=== PATIENT | male | born 1955 | race Caucasian/White ===

== ENCOUNTER 2024-05-26 19:59 | Outpatient (REF) | payer SELFPAY ==
[2024-05-26 18:51] LABS: Abs Immature Grans 0.15 10^3/uL (0.0-0.06); Absolute Eosinophil Count 0.08 10^3/uL (0.0-0.7); Absolute Lymphocyte Count 1.72 10^3/uL (1.2-3.4); Absolute Monocyte Count 1.17 10^3/uL (0.1-0.8); Absolute Neutrophil Count 5.29 10^3/uL (1.2-6.7); Basophils % 1.2 %; Eosinophils % 0.9 %; HCT 31.7 % (40.0-50.0); HGB 11.3 g/dL (13.5-17.5); Immature Grans % 1.8 %; Lymphocytes % 20.2 %; MCH 33.8 pg (27.0-33.0); MCHC 35.6 % (32.0-36.0); MCV 95 fL (80-95); MPV 9.9 fL (8.0-11.0); Monocytes % 13.7 %; Neutrophils % 62.2 %; Platelet Count 385 10^3/uL (130-400); RBC 3.34 10^6/uL (4.36-5.78); RDW 13.4 % (11.8-14.1); RDW-SD 45.5 fL; WBC 8.51 10^3/uL (4.4-10.8)
[2024-05-26 19:07] LABS: Iron 24 ug/dL (65-175); Total Iron Binding Capacity 235 ug/dL (250-450); Transferrin Sat 10 % (20-55)
[2024-05-26 19:09] LABS: Hemoglobin A1C 5.4 % (<5.7)
[2024-05-26 19:34] LABS: ALT 48 U/L (16-63); AST 27 U/L (15-37); Albumin 2.9 g/dL (3.4-5.0); Alkaline Phosphatase 65 U/L (46-116); Anion Gap 12.6 mmol/L (3-11); BUN 12 mg/dL (7-18); Bilirubin, Total 0.54 mg/dL (0.2-1.0); CO2 25.4 mmol/L (21.0-32.0); CREATININE 1.2 mg/dL (0.70-1.30); Calcium 9.2 mg/dL (8.5-10.1); Chloride 102 mmol/L (98-107); Estimated GFR 65.87 (mL/min/1.73m2); Ferritin 817 ng/mL (26-388); Folate 16.5 ng/mL (8.6-20.0); Glucose 98 mg/dL (74-106); Potassium 3.5 mmol/L (3.5-5.1); Sodium 140 mmol/L (136-145); TSH (W/Ref FT4) 3.32 uIU/mL (0.36-3.74); Total Protein 6.3 g/dL (6.4-8.2); Vitamin B12 607 pg/mL (193-986)
[2024-05-26 19:40] LABS: Magnesium 0.3 mg/dL (1.8-2.4)
[2024-05-30 21:25] LABS: Thiamine (Vitamin B1), WB 119 nmol/L (70-180)
== END 2024-05-26 20:00 | disposition home or self-care (01) ==
LOC: LBN 19:59
PROVIDERS: Visit Provider Nurse Practitioner Gerontology
DX: I11.0 Hypertensive heart disease with heart failure (principal); I11.9 Hypertensive heart disease without heart failure; R73.09 Other abnormal glucose; G89.4 Chronic pain syndrome; D52.9 Folate deficiency anemia, unspecified; D51.9 Vitamin B12 deficiency anemia, unspecified; R53.82 Chronic fatigue, unspecified; E83.42 Hypomagnesemia; E51.9 Thiamine deficiency, unspecified; I50.9 Heart failure, unspecified
CPT/HCPCS: 80053; 82607; 82728; 82746; 83036; 83540; 83550; 83735; 84425; 84443; 85025

== ENCOUNTER 2024-05-27 10:32 | Observation (INO) | payer MEDICARE, MEDICAID, SELFPAY ==
[2024-05-27] VITALS (51 sets, daily range): BP systolic 89–147; BP diastolic 56–96; PULSE 71–101; RESP 14–26; TEMP 36.6–36.9; O2SAT 93–98
--- NOTE | 2024-05-27 10:30 | RT.EKG_ITS ---
APPROVED REPORT Exam: Resting ECG Reason for Exam: Electrolyte abnormalities Patient Location: E HR:97 bpm ECG Measurements Heart Rate 97 AXIS UT 186 P 6 QRSd 82 QRS -26 QT 363 T 19 QTc 457 Conclusion Sinus rhythm, rate 97 No interval abnormalities PVCs No STEMI No priors available for comparison
--- NOTE | 2024-05-27 11:00 | W.ED.GENAD ---
Discharge Plan Disposition Patient Disposition: Admit to [facility] Condition: Stable Discharge Details Chief Complaint: GenMedical Clinical Impression: Hypomagnesemia, Hypokalemia Primary Care Provider: Unknown,Unknown ED Provider: Savita Kang Home Meds and New Rx's Prescriptions: No Action albuterol 90 mcg/actuation aerosol 108 mcg inhalation .q 6 hr prn doxycycline hyclate 100 mg capsule 100 mg PO BID omeprazole 20 mg capsule,delayed release(DR/EC) 20 mg PO DAILY loratadine [Allergy Relief (loratadine)] 10 mg tablet 10 mg PO DAILY lisinopril 5 mg tablet 5 mg PO DAILY Eliquis 5 mg tablet 5 mg PO ONCE HPI General Mode of arrival: EMS. Date/Time Provider Initiated Documentation: 05/27/24 10:36. Limitations to Documentation: no limitations. Information obtained by: patient, EMS and old records reviewed. HPI Narrative: HPI: This is a 68-year-old male patient with a history of alcohol use, residing at the [facility] for the last week, who is presenting for evaluation of low magnesium. Per EMS report the patient had laboratory studies done at the [facility] that showed a magnesium of 0.3, prompting them to seek care. The patient himself is alert and oriented to self only which is his reported baseline. He has been taking all of his medications as prescribed per his report, and is currently asymptomatic. He denies chest pain, shortness of breath, abdominal pain, has not had vomiting. Exam: Gen: Awake and alert, in no apparent distress HEENT: Non-icteric sclera Neck: Supple Lungs: No apparent respiratory distress, normal respiratory effort. CV: Appears well perfused, strong distal pulses Abdomen: Non-distended, soft, nontender MSK: Moves 4 extremities without apparent limitation in ROM. No rigidity, tetany, or spasm Skin: Visualized skin without rashes, cyanosis. Neuro: Normal Gait, no obvious focal deficits or facial asymmetry. Speaks in full, clear sentences. Psych: Appropriate for situation. MDM: This is a 68-year-old male patient presenting for evaluation of hypomagnesemia on outpatient labs. Differential includes but is not limited to electrolyte derangement, kidney injury, laboratory error, cardiac arrhythmia, malnutrition, and considered urinary tract infection. The patient is otherwise without any localizing symptoms. We will obtain an EKG and laboratory studies to include CBC, CMP, magnesium, UA. ED Course: EKG reviewed by myself, showing a sinus rhythm but evidence of ischemia, interval abnormality, though the patient does have occasional PVCs. Laboratory studies show no leukocytosis, stable anemia at 11.3 and no thrombocytopenia. Metabolic panel significant for a mildly low potassium at 3.2 which was repleted orally, and a very low magnesium of 0.2, for which I provided 4 g of magnesium intravenously. Creatinine is very slightly above at baseline at 1.4, no evidence of liver dysfunction. UA is without infectious findings or hematuria. I discussed this patient's case with the hospitalist given his exceptionally low magnesium which will likely require ongoing repletion. They have graciously accepted this patient for admission to their team, patient remained boarding in the emergency department due to lack of bed availability. Remained hemodynamically appropriate while under my care. Savita Kang MD Related Data Home Medications ?Medication ?Instructions ?Recorded ?Confirmed albuterol 90 mcg/actuation aerosol 108 mcg inhalation .q 6 hr prn 05/27/24 05/27/24 inhaler apixaban 5 mg tablet (Eliquis) 5 mg PO ONCE 05/27/24 05/27/24 doxycycline hyclate 100 mg capsule 100 mg PO BID 05/27/24 05/27/24 lisinopril 5 mg tablet 5 mg PO DAILY 05/27/24 05/27/24 loratadine 10 mg tablet (Allergy 10 mg PO DAILY 05/27/24 05/27/24 Relief (loratadine)) omeprazole 20 mg capsule,delayed 20 mg PO DAILY 05/27/24 05/27/24 release Allergies Allergy/AdvReac Type Severity Reaction Status Date / Time cephalexin Allergy Mild Unknown Verified 05/27/24 10:51 grass pollen Allergy Mild Unknown Unverified 05/27/24 10:51 Penicillins Allergy Mild Unknown Verified 05/27/24 10:51 venlafaxine (From Effexor) Allergy Mild Unknown Verified 05/27/24 10:51 ragweed pollen Allergy Unknown Verified 05/27/24 10:51 chocolate AdvReac Unknown Unknown Verified 05/27/24 10:51 General Stated Complaint: GenMedical DONAVON: 4 Course Vital Signs Vital signs: Vital Signs Temperature 36.9 C 05/27/24 10:37 Pulse 96 H 05/27/24 10:37 Respiratory Rate 16 05/27/24 10:37 Blood Pressure 103/72 05/27/24 10:37 Pulse Oximetry 93 05/27/24 10:37 Temperature 36.9 C 05/27/24 10:37 Pulse 96 H 05/27/24 10:37 Respiratory Rate 16 05/27/24 10:37 Blood Pressure 103/72 05/27/24 10:37 Pulse Oximetry 93 05/27/24 10:37 Pain Level 0 05/27/24 10:37 Medical Decision Making Quality:SDOH Health Related Social Needs: No Data to Display PFSH All Active Problems (Updated 05/27/24 @ 13:02 by Savita Kang MD) Hypokalemia (Acute) Hypomagnesemia (Acute) Social History Smoking/Tobacco Use Status: Former Tobacco Use Smoking risk assessment performed?: Yes Alcohol Intake: former Drug use: Never Substance use type: does not use Housing: assisted living facility
[2024-05-27 11:37] LABS: Abs Immature Grans 0.15 10^3/uL (0.0-0.06); Absolute Basophil Count 0.14 10^3/uL (0.0-0.2); Absolute Eosinophil Count 0.08 10^3/uL (0.0-0.7); Absolute Monocyte Count 1.09 10^3/uL (0.1-0.8); Absolute Neutrophil Count 6.15 10^3/uL (1.2-6.7); Basophils % 1.5 %; Eosinophils % 0.9 %; HCT 32.6 % (40.0-50.0); HGB 11.3 g/dL (13.5-17.5); Immature Grans % 1.6 %; Lymphocytes % 18.3 %; MCH 31.8 pg (27.0-33.0); MCHC 34.7 % (32.0-36.0); MCV 92 fL (80-95); MPV 8.9 fL (8.0-11.0); Monocytes % 11.7 %; Platelet Count 359 10^3/uL (130-400); RBC 3.55 10^6/uL (4.36-5.78); RDW 13.4 % (11.8-14.1); RDW-SD 45.1 fL; WBC 9.31 10^3/uL (4.4-10.8)
[2024-05-27 11:56] LABS: ALT 47 U/L (16-63); AST 26 U/L (15-37); Albumin 2.9 g/dL (3.4-5.0); Alkaline Phosphatase 59 U/L (46-116); BUN 15 mg/dL (7-18); Bilirubin, Total 0.63 mg/dL (0.2-1.0); CREATININE 1.4 mg/dL (0.70-1.30); Calcium 8.8 mg/dL (8.5-10.1); Chloride 98 mmol/L (98-107); Estimated GFR 54.75 (mL/min/1.73m2); Glucose 105 mg/dL (74-106); Potassium 3.2 mmol/L (3.5-5.1); Sodium 137 mmol/L (136-145)
[2024-05-27 11:58] LABS: Magnesium 0.2 mg/dL (1.8-2.4)
[2024-05-27] MEDS: MAGNESIUM SULFATE 4 GM/100 ML BAG IV_INF (12:06)
[2024-05-27] MEDS: Potassium Chloride 20 MEQ TABCR 40 MEQ PO (12:07)
[2024-05-27 12:28] LABS: Bilirubin Small (Negative); Blood Negative (Negative); Clarity Clear (Clear); Glucose 100 mg/dL (Negative); Ketones Trace mg/dL (Negative); Leukocyte Esterase Negative (Negative); Nitrite Negative (Negative); Specific Gravity 1.015 (1.005-1.025)
[2024-05-27 12:42] LABS: Bacteria Negative HPF (Negative); Crystals Negative HPF (Negative); Epithelial Cells Rare HPF (Negative); Mucus Moderate (Negative); RBC Negative HPF (0-2); WBC Negative HPF (0-5)
[2024-05-27 12:43] LABS: C & S Indicated? No; Casts 3-5 Hyaline LPF (Negative)
[2024-05-27] MEDS: Lactated Ringers 1,000 ML 1000 ML IV (14:13)
--- NOTE | 2024-05-27 15:31 | W.PC.ACHO ---
Registration Status: Primary Language: Preferred Language: ED Information & Data Chief Complaint GenMedical 05/27/24 11:01 Triage Note axo to self, hx etoh, labs 05/27/24 10:37 done yesterday, mag 0.3 Most Recent Vital Signs Temperature 36.9 C 05/27/24 10:37 Pulse 79 05/27/24 14:46 Pulse 79 05/27/24 14:50 Respiratory Rate 15 05/27/24 14:50 Respiratory Effort Normal 05/27/24 11:47 Respiratory Depth Normal 05/27/24 11:47 Respiratory Pattern Normal 05/27/24 11:47 Blood Pressure 129/82 05/27/24 14:46 Blood Pressure Mean 95 05/27/24 14:46 Pulse Oximetry 93 05/27/24 10:37 Pain Level 0 05/27/24 10:37 Allergies cephalexin Allergy (Mild, Verified 05/27/24 10:51) Unknown grass pollen Allergy (Mild, Unverified 05/27/24 10:51) Unknown Penicillins Allergy (Mild, Verified 05/27/24 10:51) Unknown venlafaxine (From Effexor) Allergy (Mild, Verified 05/27/24 10:51) Unknown ragweed pollen Allergy (Verified 05/27/24 10:51) Unknown chocolate Adverse Reaction (Unknown, Verified 05/27/24 10:51) Unknown IV IV Catheter Type [Right Upper Saline Lock arm Medial Port] IV Catheter Gauge [Right Upper 18 arm Medial Port] Diet Orders Category Date Time Status Diabetes Consistent CHO [DIET] Nutrition 05/27/24 Dinner Active Diagnostics 05/27/24 05/27/24 05/27/24 Range/Units 20:00 16:00 12:21 WBC (4.4-10.8) 10^3/uL RBC (4.36-5.78) 10^6/uL Hgb (13.5-17.5) g/dL Hct (40.0-50.0) % MCV (80-95) fL MCH (27.0-33.0) pg MCHC (32.0-36.0) % RDW (11.8-14.1) % Plt Count (130-400) 10^3/uL MPV (8.0-11.0) fL Immature Gran % % Neutrophils % % Lymphocytes % % Monocytes % % Eosinophils % % Basophils % % Nucleated RBC % (0.0-0.3) % Absolute Neutrophils (1.2-6.7) 10^3/uL Absolute Lymphocytes (1.2-3.4) 10^3/uL Absolute Monocytes (0.1-0.8) 10^3/uL Absolute Eosinophils (0.0-0.7) 10^3/uL Absolute Basophils (0.0-0.2) 10^3/uL Sodium (136-145) mmol/L Potassium (3.5-5.1) mmol/L Chloride (98-107) mmol/L Carbon Dioxide (21.0-32.0) mmol/L Anion Gap (3-11) mmol/L BUN (7-18) mg/dL Creatinine (0.70-1.30) mg/dL Est GFR (CKD-EPI 2020) (mL/min/1.73m2) Glucose (74-106) mg/dL Calcium (8.5-10.1) mg/dL Magnesium Pending Pending (1.8-2.4) mg/dL Total Bilirubin (0.2-1.0) mg/dL AST (15-37) U/L ALT (16-63) U/L Alkaline Phosphatase (46-116) U/L Total Protein (6.4-8.2) g/dL Albumin (3.4-5.0) g/dL Urine Color Yellow (Yellow) Urine Clarity Clear (Clear) Urine pH 6.0 (5-8) Ur Specific [place] 1.015 (1.005-1.025) Urine Protein 30 H (Neg-Trace) mg/dL Urine Ketones Trace H (Negative) mg/dL Urine Blood Negative (Negative) Urine Nitrite Negative (Negative) Urine Bilirubin Small H (Negative) Urine Urobilinogen 1.0 H (Up to 0.2) mg/dL Ur Leukocyte Esterase Negative (Negative) Urine RBC Negative (0-2) HPF Urine WBC Negative (0-5) HPF Ur Epithelial Cells Rare (Negative) HPF Urine Crystals Negative (Negative) HPF Urine Bacteria Negative (Negative) HPF Urine Casts 3-5 Hyaline (Negative) LPF Urine Mucus Moderate (Negative) Ur Culture Indicated? No Urine Glucose 100 H (Negative) mg/dL 05/27/24 Range/Units 11:31 WBC 9.31 (4.4-10.8) 10^3/uL RBC 3.55 L (4.36-5.78) 10^6/uL Hgb 11.3 L (13.5-17.5) g/dL Hct 32.6 L (40.0-50.0) % MCV 92 (80-95) fL MCH 31.8 (27.0-33.0) pg MCHC 34.7 (32.0-36.0) % RDW 13.4 (11.8-14.1) % Plt Count 359 (130-400) 10^3/uL MPV 8.9 (8.0-11.0) fL Immature Gran % 1.6 % Neutrophils % 66.0 % Lymphocytes % 18.3 % Monocytes % 11.7 % Eosinophils % 0.9 % Basophils % 1.5 % Nucleated RBC % 0.0 (0.0-0.3) % Absolute Neutrophils 6.15 (1.2-6.7) 10^3/uL Absolute Lymphocytes 1.70 (1.2-3.4) 10^3/uL Absolute Monocytes 1.09 H (0.1-0.8) 10^3/uL Absolute Eosinophils 0.08 (0.0-0.7) 10^3/uL Absolute Basophils 0.14 (0.0-0.2) 10^3/uL Sodium 137 (136-145) mmol/L Potassium 3.2 L (3.5-5.1) mmol/L Chloride 98 (98-107) mmol/L Carbon Dioxide 27.0 (21.0-32.0) mmol/L Anion Gap 12.0 H (3-11) mmol/L BUN 15 (7-18) mg/dL Creatinine 1.4 H (0.70-1.30) mg/dL Est GFR (CKD-EPI 2020) 54.75 (mL/min/1.73m2) Glucose 105 (74-106) mg/dL Calcium 8.8 (8.5-10.1) mg/dL Magnesium 0.2 L* (1.8-2.4) mg/dL Total Bilirubin 0.63 (0.2-1.0) mg/dL AST 26 (15-37) U/L ALT 47 (16-63) U/L Alkaline Phosphatase 59 (46-116) U/L Total Protein 7.0 (6.4-8.2) g/dL Albumin 2.9 L (3.4-5.0) g/dL Urine Color (Yellow) Urine Clarity (Clear) Urine pH (5-8) Ur Specific [place] (1.005-1.025) Urine Protein (Neg-Trace) mg/dL Urine Ketones (Negative) mg/dL Urine Blood (Negative) Urine Nitrite (Negative) Urine Bilirubin (Negative) Urine Urobilinogen (Up to 0.2) mg/dL Ur Leukocyte Esterase (Negative) Urine RBC (0-2) HPF Urine WBC (0-5) HPF Ur Epithelial Cells (Negative) HPF Urine Crystals (Negative) HPF Urine Bacteria (Negative) HPF Urine Casts (Negative) LPF Urine Mucus (Negative) Ur Culture Indicated? Urine Glucose (Negative) mg/dL Intake and Output - 24 Hour Total 05/27/24 10:23 thru 05/27/24 13:27 Intake Total 110 Balance 110 Weight 71 kg Intake: IV 110 Falls Risk Assessment History of Falls No History 05/27/24 11:47 Contributing Factors No Factors 05/27/24 11:47 Ambulatory Aids Independent 05/27/24 11:47 Tubes/Lines None 05/27/24 11:47 Gait Evaluation No gait disturbance 05/27/24 11:47 Cognition No cognitive impairment 05/27/24 11:47 Fall Total Score 0 05/27/24 11:47 Level of Risk Standard/Low Risk 05/27/24 11:47 v v v v v v v v v Sending and/or Receiving Nurses: Please use comment section below to note any information pertinent to the patient hand-off not included above. Information / Comments: Report received from: yadi at 1525 given to haritha norwood
[2024-05-27 15:48] LABS: Magnesium 1.7 mg/dL (1.8-2.4)
--- NOTE | 2024-05-27 17:52 | W.PM.HP.N ---
Date of service: 05/27/24 Time of Service: 17:52 Assessment and Plan Assessment and plan (1) Hypokalemia: Status: Acute Assessment and plan: Potassium 3.2 Repleted - trend (2) Hypomagnesemia: Status: Acute Assessment and plan: On adm labs to the [facility] it was low, he was sent to ED - repeat mag 0.2 - 4 gm mag IV given in ED 1.7 @ 1600h Recheck in am The magnesium concentration should be measured 6 to 12 hours after each dose of IV magnesium. Repeat doses are given based upon the follow-up measurement. Of note, plasma magnesium levels do not correlate well with total body stores, as the majority of magnesium is intracellular; plasma concentrations may be transiently elevated for a few hours after administration of an IV dose. (3) Alcohol abuse: Status: Chronic Assessment and plan: EDWARD ferreira Was recently admitted to [facility] ICU - unsure the circumstances, this was after a fall. Med records requested. History of Present Illness Narrative: This is a 68-year-old male patient with a history of alcohol use who recently experienced a fall. He was evaluated and admitted to [facility], although the reason for his admission remains unclear at this time. Medical records have been requested to provide further clarification. Following his discharge, he was admitted to the [facility], where laboratory studies conducted upon admission revealed a critically low magnesium level. According to the report from emergency medical services, repeat laboratory studies at the [facility] confirmed a magnesium level of 0.3 milligrams per deciliter, which prompted his transfer to the emergency department for further evaluation. The patient consumes two pounder beers daily, according to his girlfriend of 17 years. He also uses chewing tobacco. His past medical history is largely unknown, but his girlfriend mentioned that he was previously discharged from his primary care provider, Dr. Saavedra. As a result, the patient has been unable to obtain a prescription for apixaban, which he was taking for a history of blood clots. The patient is awake and alert but oriented only to himself, which is reported to be his baseline. He denied any symptoms such as chest pain, difficulty breathing, abdominal pain, or vomiting. He is currently asymptomatic. In the emergency department, an EKG was reviewed and showed a normal sinus rhythm, although there was evidence of ischemia and interval abnormalities. The electrocardiogram also revealed occasional premature ventricular contractions. Laboratory studies did not show an elevated white blood cell count. The patient has stable anemia with a hemoglobin level of 11.3 and no decrease in platelet count. His metabolic panel revealed a mildly low potassium level of 3.2, which was treated with oral supplementation, and a critically low magnesium level of 0.2, for which the patient received four grams of magnesium intravenously. His kidney function is slightly above baseline with a creatinine level of 1.4. Ammonia level is pending. There is no evidence of liver dysfunction. A urinalysis did not show any signs of infection or blood in the urine. Further evaluation is warranted to assess the underlying causes of his hypomagnesemia, as well as to determine an appropriate plan for managing his anticoagulation therapy and other medical needs. The patient is placed on observation status for electrolyte repletion, further testing and treatment. Patient is in agreement with plan of care. The [facility] was notified of his observation status. Patient is a full code. Review of Systems All systems reviewed & are unremarkable except as noted in HPI and below PFSH All Active Problems (Updated 05/27/24 @ 13:36 by NATALIIA ALBERTO) Alcohol abuse (Chronic) Hypokalemia (Acute) Hypomagnesemia (Acute) Social History Smoking/Tobacco Use Status: Former Tobacco Use Smoking risk assessment performed?: Yes Alcohol Intake: former Drug use: Never Substance use type: does not use Housing: assisted living facility Meds Allergies and Home Medications Allergies Allergy/AdvReac Type Severity Reaction Status Date / Time cephalexin Allergy Mild Unknown Verified 05/27/24 10:51 grass pollen Allergy Mild Unknown Unverified 05/27/24 10:51 Penicillins Allergy Mild Unknown Verified 05/27/24 10:51 venlafaxine (From Effexor) Allergy Mild Unknown Verified 05/27/24 10:51 ragweed pollen Allergy Unknown Verified 05/27/24 10:51 chocolate AdvReac Unknown Unknown Verified 05/27/24 10:51 Home Medications ?Medication ?Instructions ?Recorded ?Confirmed ?Type albuterol 90 mcg/actuation aerosol 108 mcg inhalation .q 6 hr prn 05/27/24 05/27/24 History inhaler apixaban 5 mg tablet (Eliquis) 5 mg PO ONCE 05/27/24 05/27/24 History doxycycline hyclate 100 mg capsule 100 mg PO BID 05/27/24 05/27/24 History lisinopril 5 mg tablet 5 mg PO DAILY 05/27/24 05/27/24 History loratadine 10 mg tablet (Allergy 10 mg PO DAILY 05/27/24 05/27/24 History Relief (loratadine)) omeprazole 20 mg capsule,delayed 20 mg PO DAILY 05/27/24 05/27/24 History release Exam Narrative Exam Narrative: Gen: Awake and alert, in no apparent distress HEENT: Non-icteric sclera Neck: Supple Lungs: No apparent respiratory distress, normal respiratory effort. CV: Appears well perfused, strong distal pulses Abdomen: Non-distended, soft, nontender MSK: Moves 4 extremities without apparent limitation in ROM. No rigidity, tetany, or spasm Skin: Visualized skin without rashes, cyanosis. Neuro: Normal Gait, no obvious focal deficits or facial asymmetry. Speaks in full, clear sentences. Psych: Appropriate for situation. Results Labs 05/27/24 11:31 05/27/24 11:31 Labs: Laboratory Results - last 24 hr 05/27/24 05/27/24 05/27/24 11:31 12:21 15:35 WBC 9.31 RBC 3.55 L Hgb 11.3 L Hct 32.6 L MCV 92 MCH 31.8 MCHC 34.7 RDW 13.4 Plt Count 359 MPV 8.9 Immature Gran % 1.6 Neutrophils % 66.0 Lymphocytes % 18.3 Monocytes % 11.7 Eosinophils % 0.9 Basophils % 1.5 Nucleated RBC % 0.0 Absolute Neutrophils 6.15 Absolute Lymphocytes 1.70 Absolute Monocytes 1.09 H Absolute Eosinophils 0.08 Absolute Basophils 0.14 Sodium 137 Potassium 3.2 L Chloride 98 Carbon Dioxide 27.0 Anion Gap 12.0 H BUN 15 Creatinine 1.4 H Est GFR (CKD-EPI 2020) 54.75 Glucose 105 Calcium 8.8 Magnesium 0.2 L* 1.7 L Total Bilirubin 0.63 AST 26 ALT 47 Alkaline Phosphatase 59 Total Protein 7.0 Albumin 2.9 L Urine Color Yellow Urine Clarity Clear Urine pH 6.0 Ur Specific [place] 1.015 Urine Protein 30 H Urine Ketones Trace H Urine Blood Negative Urine Nitrite Negative Urine Bilirubin Small H Urine Urobilinogen 1.0 H Ur Leukocyte Esterase Negative Urine RBC Negative Urine WBC Negative Ur Epithelial Cells Rare Urine Crystals Negative Urine Bacteria Negative Urine Casts 3-5 Hyaline Urine Mucus Moderate Ur Culture Indicated? No Urine Glucose 100 H 05/27/24 20:00 WBC RBC Hgb Hct MCV MCH MCHC RDW Plt Count MPV Immature Gran % Neutrophils % Lymphocytes % Monocytes % Eosinophils % Basophils % Nucleated RBC % Absolute Neutrophils Absolute Lymphocytes Absolute Monocytes Absolute Eosinophils Absolute Basophils Sodium Potassium Chloride Carbon Dioxide Anion Gap BUN Creatinine Est GFR (CKD-EPI 2020) Glucose Calcium Magnesium Cancelled Total Bilirubin AST ALT Alkaline Phosphatase Total Protein Albumin Urine Color Urine Clarity Urine pH Ur Specific [place] Urine Protein Urine Ketones Urine Blood Urine Nitrite Urine Bilirubin Urine Urobilinogen Ur Leukocyte Esterase Urine RBC Urine WBC Ur Epithelial Cells Urine Crystals Urine Bacteria Urine Casts Urine Mucus Ur Culture Indicated? Urine Glucose Last Vital Signs Temp 36.6 C 05/27/24 16:03 Pulse 85 05/27/24 16:03 Resp 20 05/27/24 16:03 BP 116/82 05/27/24 16:03 Pulse Ox 98 05/27/24 16:03 Time Spent Time spent with Patient: 40-54 minutes Time was spent: preparing to see the patient(eg.review tests), obtaining and/or reviewing separately otained hiistory, ordering medications,tests, procedures, referring, communicating with other health childcare center administrator, indepentently interpreting results and counseling the patient
[2024-05-27] MEDS: Enoxaparin 40 MG/0.4 ML SYR SC (20:10)
[2024-05-27] MEDS: Normal Saline Flush 10 ML SYR IVP (21:25)
[2024-05-28 00:25] VITALS: BP 125/83; PULSE 87; RESP 14; TEMP 35.8; O2SAT 96
[2024-05-28 03:15] VITALS: BP 131/87; PULSE 75; RESP 18; TEMP 36; O2SAT 94
[2024-05-28 08:09] LABS: Abs Immature Grans 0.07 10^3/uL (0.0-0.06); Absolute Basophil Count 0.12 10^3/uL (0.0-0.2); Absolute Eosinophil Count 0.14 10^3/uL (0.0-0.7); Absolute Lymphocyte Count 1.03 10^3/uL (1.2-3.4); Absolute Monocyte Count 0.61 10^3/uL (0.1-0.8); Basophils % 1.5 %; Eosinophils % 1.7 %; HCT 30.9 % (40.0-50.0); HGB 11.1 g/dL (13.5-17.5); Immature Grans % 0.9 %; Lymphocytes % 12.8 %; MCH 32.7 pg (27.0-33.0); MCHC 35.9 % (32.0-36.0); MCV 91 fL (80-95); MPV 9.2 fL (8.0-11.0); Monocytes % 7.6 %; Neutrophils % 75.5 %; Platelet Count 412 10^3/uL (130-400); RBC 3.39 10^6/uL (4.36-5.78); RDW 13.7 % (11.8-14.1); RDW-SD 45.9 fL; WBC 8.07 10^3/uL (4.4-10.8)
[2024-05-28 08:24] LABS: INR 1.2 (0.9-1.1); Prothrombin Time 11.5 sec (9.1-11.1)
[2024-05-28 08:30] LABS: Ammonia < 10 umol/L (11-32)
[2024-05-28 08:41] LABS: Anion Gap 11.9 mmol/L (3-11); BUN 13 mg/dL (7-18); CO2 24.1 mmol/L (21.0-32.0); CREATININE 1.1 mg/dL (0.70-1.30); Calcium 8.8 mg/dL (8.5-10.1); Chloride 102 mmol/L (98-107); Estimated GFR 73.12 (mL/min/1.73m2); Glucose 115 mg/dL (74-106); Magnesium 1.1 mg/dL (1.8-2.4); Potassium 3.2 mmol/L (3.5-5.1); Sodium 138 mmol/L (136-145)
[2024-05-28] MEDS: Lisinopril 5 MG TAB PO (08:44)
[2024-05-28] MEDS: Loratidine 10 MG TAB PO (08:44)
[2024-05-28] MEDS: Omeprazole 20 MG CAPCR PO (08:44)
[2024-05-28] MEDS: Normal Saline Flush 10 ML SYR IVP (08:45)
[2024-05-28 08:53] VITALS: BP 102/61; PULSE 105; RESP 16; TEMP 36.1; O2SAT 97
--- NOTE | 2024-05-28 09:56 | PDOC.CMIN ---
Date of service: 05/28/24 Time of Service: 09:56 Care Management Initial Assmt Initial Assessment Reason for Hospitalization: hypomagnesium Functional Status/Living Situation Patient Presentation: Chet was sitting up in a chair when CM met with him. He was pleasant but confused. He did not answer direct questions appropriately and did not seem sure about the details of his life. Chet lives in [place] with his significant other Mindi. He shared that they have been together for 19 years. Chet informed CM that he once bought her an engagement ring set and she pawned it to play golf. He laughed and stated that she has never been and is afraid to do so now. He did not seem to mind. Chet will be discharged back to [facility] later today. He was hospitalized for a low magnesium and it has been repleted. Town of Residence: [place] (originally from [place] but staying at the [facility] currently) Resides with: Other (SNF) Significant Other/Family: Local Employment Status: Retired Instrumental Activities of Daily Living (ADLs): Requires support Medications Medication Management: No Issues/Barriers identified Physical Functioning/Mobility Assistive Device: walker Advance Directives Advance Directives: Do you have an Advance Directive: Y 05/27/24 13:05 AD On File at [facility]: N 05/27/24 13:05 Date Asked 05/27/24 05/27/24 13:05 AD Date Reviewed COLST On File at [facility] COLST Date Scanned Code Status Resuscitation Status Full Code Portal Pt does not currently have a portal and education provided: No Insurance Coverage/Financial Issues Insurance: [employer] Medicare Replacement Care Team Visit Care Team Role Provider Type Unknown Unknown Primary Care Provider STAFF PHYSICIAN Savita Kang MD Emergency Provider [facility] STAFF PHYSICIAN Simone Nicholson MD Admit Provider [facility] STAFF PHYSICIAN Attending Provider Discharge Potential Discharge Needs: Other (return to SNF) Anticipated Barriers to Discharge: None Identified Patient/Family Education Needs: Review discharge instructions, discuss Ask Me Three Transportation: RCT RCT Transportation: Private vechicle Plan: Anticipate Chet will be discharged back to the [facility] when medically cleared. He will follow up with the facility providers and plan of care and transport via EMS coordinated by CM. CM will follow. Social Determinants of Health Screening Social Determinants of Health last assessed: 05/28/24 Will the Patient Participate in the Screening?: Unable to obtain Do you worry about having a steady place to live?: no Problems where you live: no known problems In the past 12 months, have you had to go without electric, gas, oil or water in your home?: no Have you or anyone in your house had to go without enough food to eat?: no Has lack of transportation kept you from medical appointments or from doing things needed for daily living?: no Has anyone in your life made you feel unsafe or unsupported?: no How hard is it for you to pay for the very basics like food, housing, medical care, and heating? Would you say it is:: Not hard at all Do you want help finding or keeping work or a job?: I do not need or want help If for any reason you need help with day-to-day activities such as bathing, preparing meals, shopping, managing finances, etc., do you get the help you need?: I don?t need any help How often do you feel lonely or isolated from those around you?: Never Do you speak a language other than Marshallese at home?: No Does the patient want assistance with any of the above?: No PFSH All Active Problems (Updated 05/27/24 @ 13:36 by NATALIIA ALBERTO) Alcohol abuse (Chronic) Hypokalemia (Acute) Hypomagnesemia (Acute) Social History Smoking/Tobacco Use Status: Former Tobacco Use Smoking risk assessment performed?: Yes Alcohol Intake: former Drug use: Never Substance use type: does not use Housing: assisted living facility
[2024-05-28] MEDS: Potassium Chloride 20 MEQ TABCR 40 MEQ PO (10:25)
[2024-05-28] MEDS: MAGNESIUM SULFATE 4 GM/100 ML BAG IV_INF (10:25)
[2024-05-28 11:57] VITALS: BP 97/70; PULSE 95; RESP 18; TEMP 37.2; O2SAT 95
--- NOTE | 2024-05-28 13:48 | W.PM.DS.N ---
Date of service: 05/28/24 Time of Service: 13:48 DS: Diagnosis Discharge Diagnosis (1) Hypokalemia: Status: Acute (2) Hypomagnesemia: Status: Acute (3) Alcohol abuse: Status: Chronic Discharge Plan Disposition Patient Disposition: Longterm Facility(SNF) Condition: Stable Condition: Improving Discharge Details Reason For Visit: hypomagnesemia Admit Date/Time: 05/27/24 13:05 Admit Provider: Simone Nicholson Attending Provider: Simone Nicholson Primary Care Provider: Devyn Benoit [facility] Course Hospital Course: The patient is a 68-year-old male with a history of alcohol use disorder, and has experienced withdrawal seizures, who was admitted to [facility] after a fall. He was admitted for acute renal failure, hyperkalemia, and alcohol withdrawal, with a possible seizure due to alcohol withdrawal. [facility] recommended rehabilitation for the patient due to weakness, and he was transferred to the [facility]. Upon admission to the [facility], laboratory studies revealed critically low magnesium levels. His magnesium level was confirmed to be 0.2, which prompted his transfer to the emergency department for further evaluation and treatment. The patient reported consuming two ?pounder? beers daily, according to his girlfriend of 17 years, and using chewing tobacco. His medical history was not well-documented, but his girlfriend noted that he had been previously discharged from care by his primary care provider, Dr. Saavedra, and had been unable to obtain a prescription for apixaban, which he had been taking for a history of blood clots. Upon investigation, it was confirmed that the patient has a primary care provider, Devyn Benoit APRN. His current medication list was received, and it was updated in the system this morning and correctly reconciled. In the emergency department, the patient was awake, alert, and oriented only to himself, which was consistent with his baseline. He denied chest pain, difficulty breathing, abdominal pain, or vomiting, and was otherwise asymptomatic. An electrocardiogram (EKG) revealed normal sinus rhythm but showed evidence of ischemia, interval abnormalities, and occasional premature ventricular contractions. Laboratory results indicated a potassium level of 3.2, which was corrected with oral supplementation, and a critically low magnesium level of 0.2. The patient received 4 grams of intravenous magnesium sulfate. Kidney function was slightly elevated with a creatinine level of 1.4, and ammonia levels were negative. There was no evidence of liver dysfunction, and a urinalysis showed no signs of infection or hematuria. The patient's hypomagnesemia was addressed with IV magnesium, and his potassium level was corrected with oral supplementation. Further testing was warranted to investigate the underlying cause of his electrolyte imbalances and to establish an appropriate management plan for his anticoagulation therapy. The patient was placed on observation status for monitoring and further treatment. The patient agreed with the planned course of care and is a full code. Labs this morning: Potassium: 3.2 (Patient received 40 meq potassium orally) Magnesium: 1.1 (Patient received 4 gm magnesium IV) Recommendations: Start magnesium 64 mg orally twice a day (or equivalent) Start potassium 20 meq orally daily Check electrolytes in 3 days The patient is stable and was discharged back to the [facility] via EMS. Home Meds and New Rx's Prescriptions: New magnesium chloride 64 mg magnesium tablet 64 mg PO BID Qty: 60 0RF potassium chloride 20 mEq tablet extended release 20 meq PO DAILY Qty: 30 0RF polyethylene glycol 3350 17 gram Powder In Packet 17 g PO DAILY PRN PRN (Reason: Constipation) Qty: 14 0RF Continued omeprazole 20 mg capsule,delayed release(DR/EC) 20 mg PO DAILY loratadine [Allergy Relief (loratadine)] 10 mg tablet 5 mg PO DAILY lisinopril 5 mg tablet 5 mg PO DAILY Eliquis 5 mg tablet 5 mg PO BID Combivent Respimat 20-100 mcg/actuation mist 1 puff inhalation QID PRN Rx Instructions: space evenly during waking hours polyethylene glycol 3350 [Powderlax] 17 gram/dose powder 17 g PO DAILY PRN thiamine HCl (vitamin B1) 100 mg tablet 100 mg PO DAILY dextromethorphan-guaifenesin [Tussin DM] 10-100 mg/5 mL liquid 5 ml PO Q4H PRN (Reason: cough) Discontinued doxycycline hyclate 100 mg capsule 100 mg PO BID Discharge Instructions Additional Instructions: Patient was discharged from [facility] on 05/23 with Rx for doxycycline for bronchitis; today makes 5 days; course completed. Start magnesium 64 mg twice a day. Start potassium 20 meq daily. Recommend BMP in 3 days. Med list received this morning from patient's PCP Sampson Benoit APRN's office. It has been reconcilled. Referrals: Black,Devyn, [employer]PA[employer]ER [Primary Care Provider] - (1-2 weeks post hospitalization appointment to be made on discharge from the [facility]) Activity:: Activity as Tolerated Equipment/Supplies:: No Equipment Needed Diet:: As Tolerated Discharge Orders Discharge Orders: Discharge Order (Routine); Ordered 05/28/24 Ordered By: Elisabeth Adame Other Ambulatory Orders: Basic Metabolic Panel (Routine) Timeframe: 3 Days Facility: [facility] - Location: Laboratory Outpatient - [facility] Ordered By: Elisabeth Adame DS: Summary Time Spent with Patient providing and/or coordinating discharge services: Greater than 30 minutes Status at Discharge Functional status at discharge: uses cane/walker Overall status at discharge: patient is back to baseline Mental Status: mental status grossly normal (baseline for patient) Speech and Movement: speech and movement normal Mood: congruent mood Affect: normal affect Quality:SDOH Health Related Social Needs: No Data to Display Exam Narrative Exam Narrative: Gen: Awake and alert, in no apparent distress HEENT: Non-icteric sclera Neck: Supple Lungs: No apparent respiratory distress, normal respiratory effort. CV: Appears well perfused, strong distal pulses Abdomen: Non-distended, soft, nontender MSK: Moves 4 extremities without apparent limitation in ROM. No rigidity, tetany, or spasm Skin: Visualized skin without rashes, cyanosis. Neuro: Normal Gait, no obvious focal deficits or facial asymmetry. Speaks in full, clear sentences. Psych: Appropriate for situation. Psych Mental Status: mental status grossly normal (baseline for patient) Speech and Movement: speech and movement normal Mood: congruent mood Affect: normal affect DS: Data Vitals/I&O Vitals and I&O: Vital Signs Temperature 37.2 C 05/28/24 11:57 Temperature Source Temporal Artery Scan 05/28/24 11:57 Pulse 95 H 05/28/24 11:57 Pulse Rhythm Irregular 05/27/24 16:03 Pulse 78 05/27/24 15:31 Respiratory Rate 18 05/28/24 11:57 Respiratory Effort Normal 05/27/24 16:03 Respiratory Depth Normal 05/27/24 16:03 Respiratory Pattern Normal 05/27/24 16:03 Blood Pressure 97/70 L 05/28/24 11:57 Blood Pressure Mean 77 05/27/24 15:31 Pulse Oximetry 95 05/28/24 11:57 Oxygen Delivery Method Room Air 05/28/24 11:57 Oxygen Flow Rate 0 05/28/24 11:57 Pain Level 0 05/28/24 03:15 Comment Notifying RN 05/28/24 11:57 Intake & Output 05/27/24 05/28/24 05/28/24 23:59 11:59 23:59 Intake Total 1110 / 1120 32.083 / 32.083 Balance 1110 / 1120 32.083 / 32.083 Weight 82.663 kg Intake: IV 1110 / 1120 32.083 / 32.083 Other: Urine Color Yellow Yellow Urine Appearance Clear Urine Odor None Stool Size Smear Stool Characteristics Brown Data Completed and Pending Labs on day of discharge: Labs from last 24 hours 05/28/24 05/27/24 05/27/24 07:55 20:00 15:35 WBC 8.07 RBC 3.39 L Hgb 11.1 L Hct 30.9 L MCV 91 MCH 32.7 MCHC 35.9 RDW 13.7 Plt Count 412 H MPV 9.2 Immature Gran % 0.9 Neutrophils % 75.5 Lymphocytes % 12.8 Monocytes % 7.6 Eosinophils % 1.7 Basophils % 1.5 Nucleated RBC % 0.0 Absolute Neutrophils 6.10 Absolute Lymphocytes 1.03 L Absolute Monocytes 0.61 Absolute Eosinophils 0.14 Absolute Basophils 0.12 PT 11.5 H INR 1.2 H Sodium 138 Potassium 3.2 L Chloride 102 Carbon Dioxide 24.1 Anion Gap 11.9 H BUN 13 Creatinine 1.1 Est GFR (CKD-EPI 2020) 73.12 Glucose 115 H Calcium 8.8 Magnesium 1.1 L Cancelled 1.7 L Ammonia < 10 L PFSH All Active Problems (Updated 05/27/24 @ 13:36 by NATALIIA ALBERTO) Alcohol abuse (Chronic) Hypokalemia (Acute) Hypomagnesemia (Acute) Social History Smoking/Tobacco Use Status: Former Tobacco Use Smoking risk assessment performed?: Yes Alcohol Intake: former Drug use: Never Substance use type: does not use Housing: assisted living facility Time Spent with Patient Time Spent with Patient: 70-84 minutes4 Time was spent: preparing to see the patient(eg.review tests), obtaining and/or reviewing separately otained hiistory, ordering medications,tests, procedures, referring, communicating with other health home care and home health aides teacher, indepentently interpreting results, counseling the patient and care coordination
--- NOTE | 2024-05-28 14:06 | W.PC.ACHO ---
Registration Status: Primary Language: Preferred Language: ED Information & Data Chief Complaint GenMedical 05/27/24 11:01 Triage Note axo to self, hx etoh, labs 05/27/24 10:37 done yesterday, mag 0.3 Most Recent Vital Signs Temperature 37.2 C 05/28/24 11:57 Temperature Source Temporal Artery Scan 05/28/24 11:57 Pulse 95 H 05/28/24 11:57 Pulse Rhythm Irregular 05/27/24 16:03 Pulse 78 05/27/24 15:31 Respiratory Rate 18 05/28/24 11:57 Respiratory Effort Normal 05/27/24 16:03 Respiratory Depth Normal 05/27/24 16:03 Respiratory Pattern Normal 05/27/24 16:03 Blood Pressure 97/70 L 05/28/24 11:57 Blood Pressure Mean 77 05/27/24 15:31 Pulse Oximetry 95 05/28/24 11:57 Oxygen Delivery Method Room Air 05/28/24 11:57 Oxygen Flow Rate 0 05/28/24 11:57 Pain Level 0 05/28/24 03:15 Comment Notifying RN 05/28/24 11:57 Allergies cephalexin Allergy (Mild, Verified 05/27/24 10:51) Unknown grass pollen Allergy (Mild, Unverified 05/27/24 10:51) Unknown Penicillins Allergy (Mild, Verified 05/27/24 10:51) Unknown venlafaxine (From Effexor) Allergy (Mild, Verified 05/27/24 10:51) Unknown ragweed pollen Allergy (Verified 05/27/24 10:51) Unknown chocolate Adverse Reaction (Unknown, Verified 05/27/24 10:51) Unknown Active Medications Generic Name Dose Route Start Last Admin Trade Name Freq PRN Reason Stop Dose Admin Enoxaparin Sodium 40 mg 05/27/24 20:00 05/27/24 20:10 Enoxaparin 40 Mg/0.4 Ml Syr SC 40 mg Q24H YOBANY Administration Lisinopril 5 mg 05/28/24 08:30 05/28/24 08:44 Lisinopril 5 Mg Tab PO 5 mg DAILY YOBANY Administration Loratadine 10 mg 05/28/24 08:30 05/28/24 08:44 Loratidine 10 Mg Tab PO 10 mg DAILY YOBANY Administration Omeprazole 20 mg 05/28/24 07:30 05/28/24 08:44 Omeprazole 20 Mg Capcr PO 20 mg DAILY@0730 YOBANY Administration Sodium Chloride 0 ml 05/27/24 20:20 05/28/24 08:45 Normal Saline Flush 10 Ml Syr IVP 10 ml BID YOBANY Administration IV IV Catheter Type [Right Upper Saline Lock arm Medial Port] IV Catheter Gauge [Right Upper 18 arm Medial Port] Diet Orders Category Date Time Status DIET [Heart Healthy Eating] [DIET] Nutrition 05/28/24 Breakfast Active Diagnostics 05/28/24 05/27/24 05/27/24 Range/Units 07:55 20:00 15:35 WBC 8.07 (4.4-10.8) 10^3/uL RBC 3.39 L (4.36-5.78) 10^6/uL Hgb 11.1 L (13.5-17.5) g/dL Hct 30.9 L (40.0-50.0) % MCV 91 (80-95) fL MCH 32.7 (27.0-33.0) pg MCHC 35.9 (32.0-36.0) % RDW 13.7 (11.8-14.1) % Plt Count 412 H (130-400) 10^3/uL MPV 9.2 (8.0-11.0) fL Immature Gran % 0.9 % Neutrophils % 75.5 % Lymphocytes % 12.8 % Monocytes % 7.6 % Eosinophils % 1.7 % Basophils % 1.5 % Nucleated RBC % 0.0 (0.0-0.3) % Absolute Neutrophils 6.10 (1.2-6.7) 10^3/uL Absolute Lymphocytes 1.03 L (1.2-3.4) 10^3/uL Absolute Monocytes 0.61 (0.1-0.8) 10^3/uL Absolute Eosinophils 0.14 (0.0-0.7) 10^3/uL Absolute Basophils 0.12 (0.0-0.2) 10^3/uL PT 11.5 H (9.1-11.1) sec INR 1.2 H (0.9-1.1) Sodium 138 (136-145) mmol/L Potassium 3.2 L (3.5-5.1) mmol/L Chloride 102 (98-107) mmol/L Carbon Dioxide 24.1 (21.0-32.0) mmol/L Anion Gap 11.9 H (3-11) mmol/L BUN 13 (7-18) mg/dL Creatinine 1.1 (0.70-1.30) mg/dL Est GFR (CKD-EPI 2020) 73.12 (mL/min/1.73m2) Glucose 115 H (74-106) mg/dL Calcium 8.8 (8.5-10.1) mg/dL Magnesium 1.1 L Cancelled 1.7 L (1.8-2.4) mg/dL Ammonia < 10 L (11-32) umol/L Intake and Output - 24 Hour Total 05/27/24 10:23 thru 05/28/24 12:20 Intake Total 1152.083 Balance 1152.083 Weight 82.663 kg Intake: IV 1152.083 Other: Urine Color Yellow Urine Appearance Clear Urine Odor None Stool Size Smear Stool Characteristics Brown Falls Risk Assessment History of Falls Previous History 05/27/24 16:03 Contributing Factors Confusion,Impairments 05/27/24 16:03 Ambulatory Aids Uses ambulatory device 05/27/24 16:03 Tubes/Lines W/no contributing factors 05/27/24 16:03 Gait Evaluation W/no contributing factors 05/27/24 16:03 Cognition Cognitive impairment 05/27/24 16:03 Fall Total Score 71 05/27/24 16:03 Level of Risk High Risk 05/27/24 16:03 Problems Alcohol abuse (Chronic) Hypokalemia (Acute) Hypomagnesemia (Acute) v v v v v v v v v Sending and/or Receiving Nurses: Please use comment section below to note any information pertinent to the patient hand-off not included above. Information / Comments: Report given to tawana sanchez from Courtney OSEI at [id number]
--- NOTE | 2024-05-28 18:05 | CMDISCH_ITS ---
Date of service: 05/28/24 Time of Service: 18:05 LACE Index Scoring Tool Questions: Length of Stay (in days): 1 Was the patient admitted via the E.D.?: Yes Comorbidities: Liver or Renal Disease E.D. Visits: 1 Answers: Total Score: 10 Risk of Readmission: High Risk Care Management Discharge Plan Reason for Hospitalization: low magnesium Discharge Plan: Chet will be discharged back to [facility]. He will follow up with the facility providers and plan of care and transport via EMS coordinated by CM. Patient/Family Education Needs: expectations, limitations Services Needed at Discharge: Correction Facility SDOH Health Related Social Needs: No Data to Display
== END 2024-05-28 14:17 | disposition skilled nursing facility (03) ==
LOC: ER 13:31 → EDHOLD 13:39 → MS 15:40
PROVIDERS: Nurse Practitioner Family; Admitting Provider Hospitalist; Emergency Provider Emergency Medicine; PCP Nurse Practitioner Family; Visit Provider Hospitalist
DX: E83.42 Hypomagnesemia (principal); E87.6 Hypokalemia; F10.10 Alcohol abuse, uncomplicated; Z79.01 Long term (current) use of anticoagulants; Z79.899 Other long term (current) drug therapy; F17.220 Nicotine dependence, chewing tobacco, uncomplicated; I49.3 Ventricular premature depolarization
CPT/HCPCS: 00123; 36415; 80048; 80053; 93005; 96361; 96365; 96366; 96372; 99285; J1650; 81003; 81015; 82140; 83735; 85025; 85610; 93010; 99222; 99239; J3475

== ENCOUNTER 2024-06-02 15:59 | Outpatient (REF) | payer MEDICARE, SELFPAY ==
[2024-06-02 14:33] LABS: ALT 42 U/L (16-63); AST 26 U/L (15-37); Albumin 2.5 g/dL (3.4-5.0); Alkaline Phosphatase 67 U/L (46-116); Anion Gap 10.1 mmol/L (3-11); BUN 8 mg/dL (7-18); Bilirubin, Total 0.36 mg/dL (0.2-1.0); CO2 23.9 mmol/L (21.0-32.0); CREATININE 0.9 mg/dL (0.70-1.30); Calcium 9.2 mg/dL (8.5-10.1); Chloride 107 mmol/L (98-107); Estimated GFR 93.03 (mL/min/1.73m2); Glucose 99 mg/dL (74-106); Magnesium 0.8 mg/dL (1.8-2.4); Potassium 4.6 mmol/L (3.5-5.1); Sodium 141 mmol/L (136-145); Total Protein 6.1 g/dL (6.4-8.2)
[2024-06-02 22:35] LABS: Parathyroid Hormone,Intact 44.6 pg/mL (19.0-88.0)
== END 2024-06-02 16:00 | disposition home or self-care (01) ==
LOC: LBN 15:59
PROVIDERS: PCP Nurse Practitioner Family; Visit Provider Nurse Practitioner Gerontology
DX: E51.9 Thiamine deficiency, unspecified (principal); E87.6 Hypokalemia; E83.42 Hypomagnesemia
CPT/HCPCS: 80053; 83735; 83970

== ENCOUNTER 2024-06-02 16:31 | Observation (INO) | payer MEDICARE, MEDICAID, SELFPAY ==
[2024-06-02] VITALS (24 sets, daily range): BP systolic 114–150; BP diastolic 74–91; PULSE 87–111; RESP 13–22; TEMP 36.5–36.9; O2SAT 95–98
--- NOTE | 2024-06-02 16:45 | RT.EKG_ITS ---
APPROVED REPORT Exam: Resting ECG Reason for Exam: weakness Patient Location: E HR:94 bpm ECG Measurements Heart Rate 94 AXIS GA 169 P 17 QRSd 80 QRS -21 QT 347 T 31 QTc 434 Conclusion Sinus rhythm. 94 normal axis no stemi
[2024-06-02 17:02] LABS: Abs Immature Grans 0.04 10^3/uL (0.0-0.06); Absolute Basophil Count 0.08 10^3/uL (0.0-0.2); Absolute Eosinophil Count 0.15 10^3/uL (0.0-0.7); Absolute Lymphocyte Count 2.33 10^3/uL (1.2-3.4); Absolute Monocyte Count 0.62 10^3/uL (0.1-0.8); Basophils % 1.1 %; Eosinophils % 2.1 %; HCT 33.6 % (40.0-50.0); HGB 11.2 g/dL (13.5-17.5); Immature Grans % 0.6 %; Lymphocytes % 33.2 %; MCH 31.7 pg (27.0-33.0); MCHC 33.3 % (32.0-36.0); MCV 95 fL (80-95); Monocytes % 8.8 %; Neutrophils % 54.2 %; Platelet Count 505 10^3/uL (130-400); RBC 3.53 10^6/uL (4.36-5.78); RDW 13.5 % (11.8-14.1); RDW-SD 47.1 fL; WBC 7.02 10^3/uL (4.4-10.8)
[2024-06-02 17:15] LABS: ALT 50 U/L (16-63); AST 27 U/L (15-37); Albumin 2.5 g/dL (3.4-5.0); Alkaline Phosphatase 64 U/L (46-116); Anion Gap 9.8 mmol/L (3-11); BUN 10 mg/dL (7-18); Bilirubin, Total 0.35 mg/dL (0.2-1.0); CO2 25.2 mmol/L (21.0-32.0); Calcium 9.2 mg/dL (8.5-10.1); Chloride 106 mmol/L (98-107); Estimated GFR 81.98 (mL/min/1.73m2); Glucose 92 mg/dL (74-106); PHOSPHORUS 4.2 mg/dL (2.6-4.7); Potassium 4.2 mmol/L (3.5-5.1); Sodium 141 mmol/L (136-145); Total Protein 6.7 g/dL (6.4-8.2)
[2024-06-02 17:22] LABS: ETHANOL BLOOD < 3.0 mg/dL (<10)
[2024-06-02 17:23] LABS: Magnesium 0.7 mg/dL (1.8-2.4)
[2024-06-02] MEDS: MAGNESIUM SULFATE 2 GM/50 ML BAG IVINF ×2 (17:36→18:29)
[2024-06-02] MEDS: Magnesium Oxide 400 MG TAB 800 MG PO (17:36)
--- NOTE | 2024-06-02 17:36 | W.PM.HP.N ---
Date of service: 06/02/24 Time of Service: 17:36 Assessment and Plan Assessment and plan (1) Hypomagnesemia: Status: Acute Assessment and plan: - Recently hospitalized at [facility] initially with magnesium of 0.2, which was repleted increased to 1.7 prior to discharge -Patient lives at the [facility] independently, and while he was having his labs checked it was noted to have decreased back down to 0.8 which prompted him to be brought back to the emergency department -At this time, unclear if patient has been taking his p.o. magnesium supplementation -Patient not noted to have any other electrolyte abnormalities at this time -This may be secondary to patient's ongoing alcohol use disorder -Has received 800 mg of magnesium oxide as well as a total of 4 mg of IV magnesium in the emergency department -Will continue p.o. regimen that was prescribed at previous hospitalization and will continue to monitor magnesium levels and adjust p.o. intake as needed (2) Alcohol abuse: Status: Chronic Assessment and plan: - No withdrawal signs at this time, will check CIWA -Continue oral vitamin replacement (3) Chronic anticoagulation: Status: Acute Assessment and plan: - Continue home Eliquis (4) Confusion: Status: Acute Assessment and plan: - Patient confused, only oriented to person -Likely contributing factor patient's questionable medication compliance -Unknown if patient's baseline if he has history of dementia, or other neurologic disease -Will be obtaining records from the [facility] and [facility] History of Present Illness History of Present Illness Chief Complaint: Low magnesium Narrative: 68-year-old male who lives at the [facility] was recently just hospitalized at [facility] from 05/27-05/28/2024 for hypomagnesemia presents back to the emergency department with complaints of hypomagnesemia. During previous hospitalization patient was noted as having a history of alcohol use disorder who consumes 2 pounder beers daily continues to chew tobacco, and was reportedly sent to the [facility] after hospitalization at [facility] for which details are largely unknown. However, when he was most recently at [facility] his magnesium level was noted as being 0.2 for which she received significant repletion both p.o. and IV and was increased back up to 1.7 prior to discharge. However, while his labs have been checked while at the [facility], his magnesium level earlier the morning of presentation was noted to be 0.8 which prompted him to be sent back to the emergency department. Patient has no complaints or concerns. In the emergency department patient was noted as having normal physical exam, normal vital signs. He was also unable to state whether or not he was taking his magnesium supplementation as was prescribed at previous discharge. While in the emergency department he was ordered 800 mg of p.o. magnesium oxide, and 2 separate doses of 2 g of IV magnesium. EKG was also ordered which did not show any acute abnormalities. At which time emergency room physician paged hospitalist for admission of the patient to observation status for ongoing hypomagnesemia. Review of Systems All systems reviewed & are unremarkable except as noted in HPI and below PFSH All Active Problems (Updated 06/02/24 @ 18:14 by Omega Corbett MD) Confusion (Acute) Chronic anticoagulation (Acute) Alcohol abuse (Chronic) Hypokalemia (Acute) Hypomagnesemia (Acute) Social History Smoking/Tobacco Use Status: Former Tobacco Use Smoking risk assessment performed?: Yes Alcohol Intake: former Drug use: Never Substance use type: does not use Housing: assisted living facility Meds Allergies and Home Medications Allergies Allergy/AdvReac Type Severity Reaction Status Date / Time cephalexin Allergy Mild Unknown Verified 05/27/24 10:51 grass pollen Allergy Mild Unknown Unverified 05/27/24 10:51 Penicillins Allergy Mild Unknown Verified 05/27/24 10:51 venlafaxine (From Effexor) Allergy Mild Unknown Verified 05/27/24 10:51 ragweed pollen Allergy Unknown Verified 05/27/24 10:51 chocolate AdvReac Unknown Unknown Verified 05/27/24 10:51 Home Medications ?Medication ?Instructions ?Recorded ?Confirmed ?Type apixaban 5 mg tablet (Eliquis) 5 mg PO BID 05/27/24 06/02/24 History lisinopril 5 mg tablet 5 mg PO DAILY 05/27/24 06/02/24 History loratadine 10 mg tablet (Allergy 10 mg PO DAILY 05/27/24 06/02/24 History Relief (loratadine)) dextromethorphan-guaifenesin 10 5 ml PO Q4H PRN cough 05/28/24 06/02/24 History mg-100 mg/5 mL oral liquid (Tussin DM) polyethylene glycol 3350 17 gram 17 g PO DAILY PRN PRN Constipation 05/28/24 06/02/24 Rx oral powder packet #14 ea potassium chloride 20 mEq 20 meq PO DAILY #30 tabs 05/28/24 06/02/24 Rx tablet,extended release thiamine HCl (vitamin B1) 100 mg 100 mg PO DAILY 05/28/24 06/02/24 History tablet albuterol sulfate 90 mcg/actuation 2 inh inhalation Q6H PRN 06/02/24 06/02/24 History aerosol inhaler lorazepam 0.5 mg tablet (Ativan) 2 mg PO Q4H PRN PRN 06/02/24 06/02/24 History magnesium gluconate 27 mg 27 mg PO TID 06/02/24 06/02/24 History magnesium (500 mg) tablet (Mag-G) mirtazapine 7.5 mg tablet 7.5 mg PO QHS 06/02/24 06/02/24 History omeprazole 20 mg capsule,delayed 20 mg PO DAILY 06/02/24 06/02/24 History release vitamin B12 0.5 mg-folic acid 1 mg 1 tab PO DAILY 06/02/24 06/02/24 History tablet (Foltrate) Exam Narrative Exam Narrative: Well-appearing older gentleman laying in bed in no acute distress, awake, alert, oriented to person only, heart regular rhythm, lungs clear to auscultation bilaterally, abdomen soft, nontender, nondistended Results Labs 06/02/24 16:45 06/02/24 16:45 Labs: Laboratory Results - last 24 hr 06/02/24 16:45 WBC 7.02 RBC 3.53 L Hgb 11.2 L Hct 33.6 L MCV 95 MCH 31.7 MCHC 33.3 RDW 13.5 Plt Count 505 H MPV 9.0 Immature Gran % 0.6 Neutrophils % 54.2 Lymphocytes % 33.2 Monocytes % 8.8 Eosinophils % 2.1 Basophils % 1.1 Nucleated RBC % 0.0 Absolute Neutrophils 3.80 Absolute Lymphocytes 2.33 Absolute Monocytes 0.62 Absolute Eosinophils 0.15 Absolute Basophils 0.08 Sodium 141 Potassium 4.2 Chloride 106 Carbon Dioxide 25.2 Anion Gap 9.8 BUN 10 Creatinine 1.0 Est GFR (CKD-EPI 2020) 81.98 Glucose 92 Calcium 9.2 Phosphorus 4.2 Magnesium 0.7 L Total Bilirubin 0.35 AST 27 ALT 50 Alkaline Phosphatase 64 Total Protein 6.7 Albumin 2.5 L Ethyl Alcohol < 3.0 Last Vital Signs Temp 98.4 F 06/02/24 17:14 Pulse 107 H 06/02/24 17:14 Resp 13 06/02/24 17:14 BP 131/74 06/02/24 17:14 Pulse Ox 96 06/02/24 17:14 Time Spent Time spent with Patient: >75 minutes Time was spent: preparing to see the patient(eg.review tests), obtaining and/or reviewing separately otained hiistory, ordering medications,tests, procedures, referring, communicating with other health childcare director, indepentently interpreting results, counseling the patient and care coordination
--- NOTE | 2024-06-02 19:20 | W.PC.ACHO ---
Registration Status: Primary Language: Preferred Language: ED Information & Data Chief Complaint GenMedical 06/02/24 16:53 Chief Complaint GenMedical 06/02/24 16:45 Triage Note Patient is a resident of the 06/02/24 16:45 [facility]. was brought to the ER by [facility]. Patient was seen in the ER days ago with hypo-magnesium. Retuned today after nursing from the [facility] stated patient mag is 0.4 today. Patient state he is uncertain why he was brought here today. Patient is alert x 1 Most Recent Vital Signs Temperature 36.7 C 06/02/24 19:01 Temperature Source Temporal Artery Scan 06/02/24 18:52 Pulse 87 06/02/24 19:01 Pulse 87 06/02/24 18:31 Respiratory Rate 17 06/02/24 19:01 Blood Pressure 149/87 H 06/02/24 19:01 Blood Pressure Mean 105 06/02/24 18:31 Blood Pressure Position Supine 06/02/24 17:14 Pulse Oximetry 98 06/02/24 19:01 Oxygen Delivery Method Room Air 06/02/24 17:14 Oxygen Flow Rate 0 06/02/24 16:45 Pain Level 0 06/02/24 19:01 Allergies cephalexin Allergy (Mild, Verified 06/02/24 18:18) Unknown grass pollen Allergy (Mild, Unverified 06/02/24 18:18) Unknown Penicillins Allergy (Mild, Verified 06/02/24 18:18) Unknown venlafaxine (From Effexor) Allergy (Mild, Verified 06/02/24 18:18) Unknown ragweed pollen Allergy (Verified 06/02/24 18:18) Unknown chocolate Adverse Reaction (Unknown, Verified 06/02/24 18:18) Unknown IV IV Catheter Type [Left Saline Lock Antecubital] IV Catheter Type [Left Forearm Saline Lock ] IV Catheter Gauge [Left 18 Forearm] Diet Orders Category Date Time Status Heart Healthy Eating [DIET] Nutrition 06/03/24 Breakfast Ordered Diagnostics 06/02/24 Range/Units 16:45 WBC 7.02 (4.4-10.8) 10^3/uL RBC 3.53 L (4.36-5.78) 10^6/uL Hgb 11.2 L (13.5-17.5) g/dL Hct 33.6 L (40.0-50.0) % MCV 95 (80-95) fL MCH 31.7 (27.0-33.0) pg MCHC 33.3 (32.0-36.0) % RDW 13.5 (11.8-14.1) % Plt Count 505 H (130-400) 10^3/uL MPV 9.0 (8.0-11.0) fL Immature Gran % 0.6 % Neutrophils % 54.2 % Lymphocytes % 33.2 % Monocytes % 8.8 % Eosinophils % 2.1 % Basophils % 1.1 % Nucleated RBC % 0.0 (0.0-0.3) % Absolute Neutrophils 3.80 (1.2-6.7) 10^3/uL Absolute Lymphocytes 2.33 (1.2-3.4) 10^3/uL Absolute Monocytes 0.62 (0.1-0.8) 10^3/uL Absolute Eosinophils 0.15 (0.0-0.7) 10^3/uL Absolute Basophils 0.08 (0.0-0.2) 10^3/uL Sodium 141 (136-145) mmol/L Potassium 4.2 (3.5-5.1) mmol/L Chloride 106 (98-107) mmol/L Carbon Dioxide 25.2 (21.0-32.0) mmol/L Anion Gap 9.8 (3-11) mmol/L BUN 10 (7-18) mg/dL Creatinine 1.0 (0.70-1.30) mg/dL Est GFR (CKD-EPI 2020) 81.98 (mL/min/1.73m2) Glucose 92 (74-106) mg/dL Calcium 9.2 (8.5-10.1) mg/dL Phosphorus 4.2 (2.6-4.7) mg/dL Magnesium 0.7 L (1.8-2.4) mg/dL Total Bilirubin 0.35 (0.2-1.0) mg/dL AST 27 (15-37) U/L ALT 50 (16-63) U/L Alkaline Phosphatase 64 (46-116) U/L Total Protein 6.7 (6.4-8.2) g/dL Albumin 2.5 L (3.4-5.0) g/dL Ethyl Alcohol < 3.0 (<10) mg/dL Intake and Output - 24 Hour Total 06/02/24 16:25 thru 06/02/24 18:05 Intake Total 50 Balance 50 Weight 81.647 kg Intake: IV 50 Falls Risk Assessment History of Falls Previous History 06/02/24 17:11 Contributing Factors Confusion,Unstable 06/02/24 17:11 Ambulatory Aids Uses ambulatory device 06/02/24 17:11 Cognition Cognitive impairment 06/02/24 17:11 Fall Total Score 51 06/02/24 17:11 Level of Risk High Risk 06/02/24 17:11 Problems Confusion (Acute) Chronic anticoagulation (Acute) Alcohol abuse (Chronic) Hypomagnesemia (Acute) v v v v v v v v v Sending and/or Receiving Nurses: Please use comment section below to note any information pertinent to the patient hand-off not included above. Information / Comments: Report received from: Sarah ed rn. Report called at 18:16, pt arrive at 18:46. mariano scott in the ed
--- NOTE | 2024-06-02 19:23 | ED.GENADUL_ITS ---
Discharge Plan Disposition Patient Disposition: Admit to [facility] Condition: Stable Discharge Details Clinical Impression: Hypomagnesemia Admit Date/Time: 06/02/24 17:36 Admit Provider: Omega Corbett Attending Provider: Omega Corbett Primary Care Provider: Devyn Benoit ED Provider: Shannon Hi Discharge Data Discharge Date/Time-TO BE ENTERED AT DEPARTURE: 06/02/24 18:36 HPI General Date/Time Provider Initiated Documentation: 06/02/24 16:52 . Limitations to Documentation: altered mental status . Information obtained by: RN/MD . HPI Narrative: 68-year-old gentleman with past medical history of prior alcohol abuse, chronic anticoagulation, electrolyte derangement presents via ambulance from the [facility]. Patient was discharged from this facility 4 days ago after having notable electrolyte derangement. Patient was started on oral replacement medication prior to discharge. The patient is unable to provide any additional history regarding the medication he is taking or his dietary habits that may be contributing to his ongoing derangement. Related Data Home Medications ?Medication ?Instructions ?Recorded ?Confirmed apixaban 5 mg tablet (Eliquis) 5 mg PO BID 05/27/24 06/02/24 lisinopril 5 mg tablet 5 mg PO DAILY 05/27/24 06/02/24 loratadine 10 mg tablet (Allergy 10 mg PO DAILY 05/27/24 06/02/24 Relief (loratadine)) dextromethorphan-guaifenesin 10 5 ml PO Q4H PRN cough 05/28/24 06/02/24 mg-100 mg/5 mL oral liquid (Tussin DM) polyethylene glycol 3350 17 gram 17 g PO DAILY PRN PRN Constipation 05/28/24 06/02/24 oral powder packet #14 ea potassium chloride 20 mEq 20 meq PO DAILY #30 tabs 05/28/24 06/02/24 tablet,extended release thiamine HCl (vitamin B1) 100 mg 100 mg PO DAILY 05/28/24 06/02/24 tablet albuterol sulfate 90 mcg/actuation 2 inh inhalation Q6H PRN 06/02/24 06/02/24 aerosol inhaler lorazepam 0.5 mg tablet (Ativan) 2 mg PO Q4H PRN PRN 06/02/24 06/02/24 magnesium gluconate 27 mg 27 mg PO TID 06/02/24 06/02/24 magnesium (500 mg) tablet (Mag-G) mirtazapine 7.5 mg tablet 7.5 mg PO QHS 06/02/24 06/02/24 omeprazole 20 mg capsule,delayed 20 mg PO DAILY 06/02/24 06/02/24 release vitamin B12 0.5 mg-folic acid 1 mg 1 tab PO DAILY 06/02/24 06/02/24 tablet (Foltrate) Previous Rx's ?Medication ?Instructions ?Recorded polyethylene glycol 3350 17 gram 17 g PO DAILY PRN PRN Constipation 05/28/24 oral powder packet #14 ea potassium chloride 20 mEq 20 meq PO DAILY #30 tabs 05/28/24 tablet,extended release Allergies Allergy/AdvReac Type Severity Reaction Status Date / Time cephalexin Allergy Mild Unknown Verified 06/02/24 18:18 grass pollen Allergy Mild Unknown Unverified 06/02/24 18:18 Penicillins Allergy Mild Unknown Verified 06/02/24 18:18 venlafaxine (From Effexor) Allergy Mild Unknown Verified 06/02/24 18:18 ragweed pollen Allergy Unknown Verified 06/02/24 18:18 chocolate AdvReac Unknown Unknown Verified 06/02/24 18:18 General Stated Complaint: GenMedical DONAVON: 3 Exam Narrative Exam Narrative: review of Systems: All systems reviewed & are unremarkable except as noted in HPI and below Well-developed, no acute distress NCAT RRR Unlabored respiratory effort Nondistended abdomen no focal neurologic deficits Pleasant, answers yes to every question, oriented to person, but not place Course Vital Signs Vital signs: Vital Signs Pulse 106 H 06/02/24 16:45 Respiratory Rate 13 06/02/24 16:45 Blood Pressure 140/83 06/02/24 16:45 Pulse Oximetry 96 06/02/24 16:45 Temperature 36.7 C 06/02/24 19:01 Temperature Source Temporal Artery Scan 06/02/24 18:52 Pulse 87 06/02/24 19:01 Pulse 87 06/02/24 18:31 Respiratory Rate 17 06/02/24 19:01 Blood Pressure 149/87 H 06/02/24 19:01 Blood Pressure Mean 105 06/02/24 18:31 Blood Pressure Position Supine 06/02/24 17:14 Pulse Oximetry 98 06/02/24 19:01 Oxygen Delivery Method Room Air 06/02/24 17:14 Oxygen Flow Rate 0 06/02/24 16:45 Pain Level 0 06/02/24 19:01 Lab/Test Results Lab/Test Results: Laboratory Tests Range/Units 06/02/24 16:45 WBC (4.4-10.8) 10^3/uL 7.02 RBC (4.36-5.78) 10^6/uL 3.53 L Hgb (13.5-17.5) g/dL 11.2 L Hct (40.0-50.0) % 33.6 L MCV (80-95) fL 95 MCH (27.0-33.0) pg 31.7 MCHC (32.0-36.0) % 33.3 RDW (11.8-14.1) % 13.5 Plt Count (130-400) 10^3/uL 505 H MPV (8.0-11.0) fL 9.0 Immature Gran % % 0.6 Neutrophils % % 54.2 Lymphocytes % % 33.2 Monocytes % % 8.8 Eosinophils % % 2.1 Basophils % % 1.1 Nucleated RBC % (0.0-0.3) % 0.0 Absolute Neutrophils (1.2-6.7) 10^3/uL 3.80 Absolute Lymphocytes (1.2-3.4) 10^3/uL 2.33 Absolute Monocytes (0.1-0.8) 10^3/uL 0.62 Absolute Eosinophils (0.0-0.7) 10^3/uL 0.15 Absolute Basophils (0.0-0.2) 10^3/uL 0.08 Sodium (136-145) mmol/L 141 Potassium (3.5-5.1) mmol/L 4.2 Chloride (98-107) mmol/L 106 Carbon Dioxide (21.0-32.0) mmol/L 25.2 Anion Gap (3-11) mmol/L 9.8 BUN (7-18) mg/dL 10 Creatinine (0.70-1.30) mg/dL 1.0 Est GFR (CKD-EPI 2020) (mL/min/1.73m2) 81.98 Glucose (74-106) mg/dL 92 Calcium (8.5-10.1) mg/dL 9.2 Phosphorus (2.6-4.7) mg/dL 4.2 Magnesium (1.8-2.4) mg/dL 0.7 L Total Bilirubin (0.2-1.0) mg/dL 0.35 AST (15-37) U/L 27 ALT (16-63) U/L 50 Alkaline Phosphatase (46-116) U/L 64 Total Protein (6.4-8.2) g/dL 6.7 Albumin (3.4-5.0) g/dL 2.5 L Ethyl Alcohol (<10) mg/dL < 3.0 Medical Decision Making Emergent evaluation of electrolyte derangement. Patient was sent from nursing facility for reevaluation of ongoing persistently low magnesium level. The pat ient was recently discharged from this facility for the same. Lab work was obtained. Anemia is stable. His magnesium level today is 0.6. He was given 4 G of magnesium in the emergency department as well as oral replacement. The patient will be admitted to the hospital for further electrolyte management Quality:SDOH Health Related Social Needs: No Data to Display [facility] All Active Problems (Updated 06/02/24 @ 18:14 by Omega Corbett MD) Confusion (Acute) Chronic anticoagulation (Acute) Alcohol abuse (Chronic) Hypokalemia (Acute) Hypomagnesemia (Acute) Social History Smoking/Tobacco Use Status: Former Tobacco Use Smoking risk assessment performed?: Yes Alcohol Intake: former Drug use: Never Substance use type: does not use Housing: assisted living facility
[2024-06-02] MEDS: Apixaban 5 MG TAB PO (19:42)
[2024-06-02] MEDS: Mirtazapine 15 MG TAB 7.5 MG PO (19:42)
[2024-06-02] MEDS: Magnesium Gluconate 500 MG TAB PO (19:42)
[2024-06-02] MEDS: Normal Saline Flush 10 ML SYR IVP ×2 (19:42→21:07)
[2024-06-03 02:36] VITALS: BP 131/81; PULSE 103; RESP 19; TEMP 36.6; O2SAT 97
[2024-06-03 07:14] LABS: HCT 30.3 % (40.0-50.0); HGB 10.1 g/dL (13.5-17.5); MCH 31.7 pg (27.0-33.0); MCHC 33.3 % (32.0-36.0); MCV 95 fL (80-95); MPV 9.1 fL (8.0-11.0); Platelet Count 447 10^3/uL (130-400); RBC 3.19 10^6/uL (4.36-5.78); RDW 13.4 % (11.8-14.1); RDW-SD 46.7 fL; WBC 6.47 10^3/uL (4.4-10.8)
[2024-06-03 07:41] LABS: Anion Gap 9.2 mmol/L (3-11); BUN 6 mg/dL (7-18); CO2 24.8 mmol/L (21.0-32.0); CREATININE 0.8 mg/dL (0.70-1.30); Calcium 9.2 mg/dL (8.5-10.1); Chloride 107 mmol/L (98-107); Glucose 94 mg/dL (74-106); Magnesium 1.8 mg/dL (1.8-2.4); Potassium 4.2 mmol/L (3.5-5.1); Sodium 141 mmol/L (136-145)
[2024-06-03 08:00] VITALS: BP 130/82; PULSE 100; RESP 16; TEMP 36.8; O2SAT 96
[2024-06-03] MEDS: Loratidine 10 MG TAB PO (08:44)
[2024-06-03] MEDS: Thiamine 100 MG TAB PO (08:44)
[2024-06-03] MEDS: Lisinopril 5 MG TAB PO (08:44)
[2024-06-03] MEDS: Magnesium Gluconate 500 MG TAB PO ×3 (08:44→19:55)
[2024-06-03] MEDS: Cyanocobalamin 500 MCG TAB PO (08:44)
[2024-06-03] MEDS: Apixaban 5 MG TAB PO ×2 (08:44→19:55)
[2024-06-03] MEDS: Folic Acid 1 MG TAB PO (08:44)
[2024-06-03] MEDS: Omeprazole 20 MG CAPCR PO (08:45)
[2024-06-03] MEDS: Potassium Chloride 20 MEQ TABCR PO (08:45)
[2024-06-03] MEDS: Normal Saline Flush 10 ML SYR IVP ×2 (08:45→19:55)
[2024-06-03] MEDS: guaiFENesin/D-METHORPHAN HB 5 ML CUP PO (08:45)
--- NOTE | 2024-06-03 09:43 | PDOC.CMIN ---
Date of service: 06/03/24 Time of Service: 09:44 Care Management Initial Assmt Initial Assessment Reason for Hospitalization: hypomagnesemia Functional Status/Living Situation Patient Presentation: Chet was sitting up in a chair when CM met with him. He was alert but confused. Chet was not sure where he was and informed CM that he lived in [facility] in [place], in [place] and 2 miles from here at different points in the conversation. Chet stated that he lives with Mindi in [place]. he stated he has 5 children and she has one. 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 Chet was admitted in observation status for a low magnesium. He is being monitored and his magnesium is being repleted. Town of Residence: [place] Resides with: Other (SNF) Significant Other/Family: Local Natural Supports: girlfriend Mindi Employment Status: Disabled Instrumental Activities of Daily Living (ADLs): Independent Medications Medication Management: No Issues/Barriers identified (has meds administered by staff) Physical Functioning/Mobility Assistive Device: walker Advance Directives Advance Directives: Do you have an Advance Directive: Y 05/27/24 13:05 AD [facility] at [facility]: N 05/27/24 13:05 Date Asked 06/02/24 06/02/24 13:56 AD Date Reviewed COLST On File at [facility] COLST Date Scanned Code Status Resuscitation Status Full Code Portal Pt does not currently have a portal and education provided: No Portal Education: Other (confused) Insurance Coverage/Financial Issues Insurance: [facility] Medicare replacement Care Team Visit Care Team Role Provider Type Devyn Benoit NP Primary Care Provider NURSE PRACTITIONER Shannon Hi MD Emergency Provider [facility] STAFF PHYSICIAN Omega Corbett MD Admit Provider [facility] STAFF PHYSICIAN Attending Provider Discharge Potential Discharge Needs: Other (SNF) Anticipated Barriers to Discharge: Medical Status Patient/Family Education Needs: Review discharge instructions, discuss Ask Me Three Transportation: RCT Plan: Chet will be discharged back to [facility] when medically cleared. He will follow up with facility providers and plan of care and transport via RCT coordinated by CM. CM will follow. Social Determinants of Health Screening Will the Patient Participate in the Screening?: Declined to provide PFSH All Active Problems (Updated 06/02/24 @ 18:14 by Omega Corbett MD) Confusion (Acute) Chronic anticoagulation (Acute) Alcohol abuse (Chronic) Hypokalemia (Acute) Hypomagnesemia (Acute) Social History Smoking/Tobacco Use Status: Former Tobacco Use Smoking risk assessment performed?: Yes Alcohol Intake: former Drug use: Never Substance use type: does not use Housing: long-term Readmission Within the Past 30 Days Yes or No: Yes Date of First Admission Date of 1st Admission: 05/27/24 Date of this Admission Date of Admission: 06/02/24 This admission was: Through ED If the patient came from Ext. Facility Call the Facility to discuss the patient's admission: has been getting his magnesium tid as ordered Assessment for Readmission Summary of readmission circumstances, based upon interviews: Chet was hospitalized last week for an electrolyte imbalance with a low magnesium (0.2) and slightly low potassium.Both were repleted and he was discharged with an order for magnesium tid which he has been receiving (confirmed with SNF).
[2024-06-03 11:39] VITALS: BP 117/84; PULSE 100; RESP 16; TEMP 36.8; O2SAT 98
--- NOTE | 2024-06-03 13:34 | PGE_ITS ---
Date of Service Date of service: 06/03/24 Time of Service: 13:34 Assessment and Plan Assessment and plan (1) Hypomagnesemia: Status: Acute Assessment and plan: - Recently hospitalized at [facility] initially with magnesium of 0.2, which was repleted increased to 1.7 prior to discharge -Patient lives at the [facility] for subacute rehab, and while he was having his labs checked it was noted to have decreased back down to 0.8 which prompted him to be brought back to the emergency department -[facility] was able to confirm that he has been taking his p.o. magnesium supplementation 3 times daily -Patient not noted to have any other electrolyte abnormalities at this time -This may be secondary to patient's ongoing alcohol use disorder -Has received 800 mg of magnesium oxide as well as a total of 4 mg of IV magnesium in the emergency department -Will continue p.o. regimen that was prescribed and monitor magnesium levels on this regimen and make adjustments as needed (2) Alcohol abuse: Status: Chronic Assessment and plan: - Patient is apparently been abstinent from alcohol at least since being at the [facility] over the last 2 weeks -CIWA scoring has been discontinued (3) Chronic anticoagulation: Status: Acute Assessment and plan: - Continue home Eliquis (4) Confusion: Status: Acute Assessment and plan: - Patient confused, only oriented to person -Was able to confirm with the [facility] that this is patient's baseline mental status -This is likely secondary to chronic alcohol use disorder, though would recommend outpatient follow-up with neurologist for formal diagnosis Subjective Subjective Interval history since last seen: Patient able to stated that he is doing well today but he continues to only be oriented to person. 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 Additionally, the [facility] confirmed that since he was admitted there about 2 weeks ago he has not had access to alcohol therefore he is not going through alcohol withdrawal, and confirms his confusion as his likely baseline mental status. Exam Narrative Exam Narrative: Well-appearing older gentleman laying in bed in no acute distress, awake, alert, oriented to person only, heart regular rhythm, lungs clear to auscultation bilaterally, abdomen soft, nontender, nondistended Objective Last Vital Signs Temp 98.2 F 06/03/24 11:39 Pulse 100 H 06/03/24 11:39 Resp 16 06/03/24 11:39 BP 117/84 06/03/24 11:39 Pulse Ox 98 06/03/24 11:39 Laboratory Results - last 24 hr 06/02/24 06/03/24 16:45 06:17 WBC 7.02 6.47 RBC 3.53 L 3.19 L Hgb 11.2 L 10.1 L Hct 33.6 L 30.3 L MCV 95 95 MCH 31.7 31.7 MCHC 33.3 33.3 RDW 13.5 13.4 Plt Count 505 H 447 H MPV 9.0 9.1 Immature Gran % 0.6 Neutrophils % 54.2 Lymphocytes % 33.2 Monocytes % 8.8 Eosinophils % 2.1 Basophils % 1.1 Nucleated RBC % 0.0 Absolute Neutrophils 3.80 Absolute Lymphocytes 2.33 Absolute Monocytes 0.62 Absolute Eosinophils 0.15 Absolute Basophils 0.08 Sodium 141 141 Potassium 4.2 4.2 Chloride 106 107 Carbon Dioxide 25.2 24.8 Anion Gap 9.8 9.2 BUN 10 6 L Creatinine 1.0 0.8 Est GFR (CKD-EPI 2020) 81.98 96.40 Glucose 92 94 Calcium 9.2 9.2 Phosphorus 4.2 Magnesium 0.7 L 1.8 Total Bilirubin 0.35 AST 27 ALT 50 Alkaline Phosphatase 64 Total Protein 6.7 Albumin 2.5 L Ethyl Alcohol < 3.0 Time Spent with Patient Time Spent with Patient: >50 minutes Time was spent: preparing to see the patient(eg.review tests), obtaining and/or reviewing separately otained hiistory, ordering medications,tests, procedures, referring, communicating with other health child care teacher, indepentently interpreting results, counseling the patient and care coordination
[2024-06-03 14:52] VITALS: BP 114/68; PULSE 78; RESP 16; TEMP 36.6; O2SAT 94
[2024-06-03 15:01] LABS: Magnesium 1.6 mg/dL (1.8-2.4)
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
[2024-06-03] MEDS: Mirtazapine 15 MG TAB 7.5 MG PO (19:55)
[2024-06-03 20:14] VITALS: BP 106/80; PULSE 111; RESP 17; TEMP 36.7; O2SAT 99
[2024-06-03 23:35] VITALS: BP 140/89; PULSE 103; RESP 19; TEMP 36.6; O2SAT 97
[2024-06-04] MEDS: LORazepam 0.5 MG TAB PO ×2 (01:35→07:44)
[2024-06-04 03:25] VITALS: BP 141/83; PULSE 101; RESP 19; TEMP 36.9; O2SAT 96
[2024-06-04 07:04] LABS: HCT 28.5 % (40.0-50.0); HGB 9.7 g/dL (13.5-17.5); MCH 31.7 pg (27.0-33.0); MCV 93 fL (80-95); MPV 8.8 fL (8.0-11.0); Platelet Count 478 10^3/uL (130-400); RBC 3.06 10^6/uL (4.36-5.78); RDW 13.6 % (11.8-14.1); RDW-SD 45.9 fL
[2024-06-04 07:15] LABS: Anion Gap 8.3 mmol/L (3-11); BUN 7 mg/dL (7-18); CO2 24.7 mmol/L (21.0-32.0); CREATININE 0.9 mg/dL (0.70-1.30); Calcium 9.7 mg/dL (8.5-10.1); Chloride 104 mmol/L (98-107); Estimated GFR 93.03 (mL/min/1.73m2); Glucose 99 mg/dL (74-106); Potassium 4.1 mmol/L (3.5-5.1); Sodium 137 mmol/L (136-145)
[2024-06-04 07:17] LABS: Magnesium 1.5 mg/dL (1.8-2.4)
[2024-06-04] MEDS: Magnesium Gluconate 500 MG TAB PO (07:44)
[2024-06-04] MEDS: Lisinopril 5 MG TAB PO (07:46)
[2024-06-04] MEDS: Apixaban 5 MG TAB PO ×2 (07:46→21:45)
[2024-06-04] MEDS: Potassium Chloride 20 MEQ TABCR PO (07:46)
[2024-06-04] MEDS: Cyanocobalamin 500 MCG TAB PO (07:46)
[2024-06-04] MEDS: Omeprazole 20 MG CAPCR PO (07:46)
[2024-06-04] MEDS: Thiamine 100 MG TAB PO (07:46)
[2024-06-04] MEDS: Loratidine 10 MG TAB PO (07:46)
[2024-06-04] MEDS: Normal Saline Flush 10 ML SYR IVP ×2 (07:47→21:46)
[2024-06-04 08:18] VITALS: BP 138/94; PULSE 95; RESP 14; TEMP 36.8; O2SAT 93
[2024-06-04] MEDS: Magnesium Gluconate 500 MG TAB 1000 MG PO ×3 (11:06→21:45)
[2024-06-04] MEDS: Folic Acid 1 MG TAB PO (11:06)
[2024-06-04 11:39] VITALS: BP 142/96; PULSE 101; RESP 15; TEMP 36.7; O2SAT 96
--- NOTE | 2024-06-04 12:18 | PDOC.CMPRO ---
Date of service: 06/04/24 Time of Service: 12:19 Care Management Progress Note Progress Note Text Progress Note Text: Chet was sleeping, no changes are made to his discharge plan therefor CM did not attempt to wake him. Chet will be discharged back to the [facility][1] when medically ready for discharge. PA was approved and pt may return on Sunday, per Yennifer. Discharge Potential Discharge Needs: Consult Anticipated Barriers to Discharge: Medical Status Patient/Family Education Needs: Review discharge instructions, discuss Ask Me Three Transportation: RCT Plan: Chet will be discharged back to [facility]] when medically cleared, likely tomorrow. Prior Auth is approved and he is able to return Sunday if ready. He will follow up with facility providers and plan of care and transport via RCT coordinated by CM. May need EMS depending on level of confusion. CM will follow. Social Determinants of Health Screening Will the Patient Participate in the Screening?: Declined to provide
--- NOTE | 2024-06-04 12:38 | PGE_ITS ---
Date of Service Date of service: 06/04/24 Time of Service: 12:38 Assessment and Plan Assessment and plan (1) Hypomagnesemia: Status: Acute Assessment and plan: - Recently hospitalized at [facility] initially with magnesium of 0.2, which was repleted increased to 1.7 prior to discharge -Patient lives at the [facility] for subacute rehab, and while he was having his labs checked it was noted to have decreased back down to 0.8 which prompted him to be brought back to the emergency department -[facility] was able to confirm that he has been taking his p.o. magnesium supplementation 3 times daily -Patient not noted to have any other electrolyte abnormalities at this time -This may be secondary to patient's ongoing alcohol use disorder -Has received 800 mg of magnesium oxide as well as a total of 4 mg of IV magnesium in the emergency department -Mg up to 1.8 on AM 2/4, but has dropped back down to 1.5 as of AM 2/5 -increased PO Mg to 1000mg TID, will check PM Mg level (2) Alcohol abuse: Status: Chronic Assessment and plan: - Patient is apparently been abstinent from alcohol at least since being at the [facility] over the last 2 weeks -CIWA scoring has been discontinued (3) Chronic anticoagulation: Status: Acute Assessment and plan: - Continue home Eliquis (4) Confusion: Status: Acute Assessment and plan: - Patient confused, only oriented to person -Was able to confirm with the [facility] that this is patient's baseline mental status -This is likely secondary to chronic alcohol use disorder, though would recommend outpatient follow-up with neurologist for formal diagnosis Subjective Subjective Interval history since last seen: Patient a little more agitated as compared to previous days, though appeared clam during my exam this morning. Exam Narrative Exam Narrative: Well-appearing older gentleman laying in bed in no acute distress, awake, alert, oriented to person only, heart regular rhythm, lungs clear to auscultation bilaterally, abdomen soft, nontender, nondistended Objective Last Vital Signs Temp 98.1 F 06/04/24 11:39 Pulse 101 H 06/04/24 11:39 Resp 15 06/04/24 11:39 BP 142/96 H 06/04/24 11:39 Pulse Ox 96 06/04/24 11:39 Laboratory Results - last 24 hr 06/03/24 06/04/24 13:55 06:20 WBC 7.30 RBC 3.06 L Hgb 9.7 L Hct 28.5 L MCV 93 MCH 31.7 MCHC 34.0 RDW 13.6 Plt Count 478 H MPV 8.8 Sodium 137 Potassium 4.1 Chloride 104 Carbon Dioxide 24.7 Anion Gap 8.3 BUN 7 Creatinine 0.9 Est GFR (CKD-EPI 2020) 93.03 Glucose 99 Calcium 9.7 Magnesium 1.6 L 1.5 L Time Spent with Patient Time Spent with Patient: >50 minutes Time was spent: preparing to see the patient(eg.review tests), obtaining and/or reviewing separately otained hiistory, ordering medications,tests, procedures, referring, communicating with other health pediatric acute care unit nurse, indepentently interpreting results, counseling the patient and care coordination
[2024-06-04 13:13] LABS: Magnesium 1.4 mg/dL (1.8-2.4)
[2024-06-04] MEDS: LORazepam 0.5 MG TAB 1 MG PO ×2 (13:48→21:45)
[2024-06-04] MEDS: LORazepam 1 MG TAB PO ×2 (14:26→22:40)
[2024-06-04 15:44] VITALS: BP 127/79; PULSE 109; RESP 15; TEMP 37.8; O2SAT 93
[2024-06-04] MEDS: OLANZapine 5 MG TAB 2.5 MG PO (17:21)
[2024-06-04 19:27] VITALS: BP 124/85; PULSE 98; RESP 17; TEMP 36.8; O2SAT 95
[2024-06-04] MEDS: Acetaminophen 325 MG TAB PO (21:45)
[2024-06-04] MEDS: Mirtazapine 15 MG TAB 7.5 MG PO (21:45)
[2024-06-04] MEDS: guaiFENesin/D-METHORPHAN HB 5 ML CUP PO (21:46)
[2024-06-04] MEDS: OLANZapine 2.5 MG TAB PO (22:41)
[2024-06-05 02:43] VITALS: BP 153/101; PULSE 78; RESP 20; TEMP 36.7; O2SAT 98
[2024-06-05 07:57] LABS: Anion Gap 10.9 mmol/L (3-11); BUN 4 mg/dL (7-18); CO2 25.1 mmol/L (21.0-32.0); Calcium 10.1 mg/dL (8.5-10.1); Chloride 108 mmol/L (98-107); Estimated GFR 81.98 (mL/min/1.73m2); Glucose 87 mg/dL (74-106); Magnesium 1.5 mg/dL (1.8-2.4); Sodium 144 mmol/L (136-145)
[2024-06-05] MEDS: Cyanocobalamin 500 MCG TAB PO (08:50)
[2024-06-05] MEDS: Potassium Chloride 20 MEQ TABCR PO (08:50)
[2024-06-05] MEDS: Folic Acid 1 MG TAB PO (08:50)
[2024-06-05] MEDS: OLANZapine 2.5 MG TAB PO (08:50)
[2024-06-05] MEDS: Lisinopril 5 MG TAB PO (08:50)
[2024-06-05] MEDS: Apixaban 5 MG TAB PO (08:50)
[2024-06-05] MEDS: Omeprazole 20 MG CAPCR PO (08:51)
[2024-06-05] MEDS: Thiamine 100 MG TAB PO (08:51)
[2024-06-05] MEDS: Loratidine 10 MG TAB PO (08:51)
[2024-06-05] MEDS: Magnesium Gluconate 500 MG TAB 1000 MG PO (08:51)
[2024-06-05 08:55] VITALS: BP 129/92; PULSE 92; RESP 16; TEMP 36.1; O2SAT 97
--- NOTE | 2024-06-05 09:25 | PDOC.CMDIS ---
Date of service: 06/05/24 LACE Index Scoring Tool Questions: Length of Stay (in days): 3 Was the patient admitted via the E.D.?: Yes Comorbidities: Dementia E.D. Visits: 2 Answers: Total Score: 11 Risk of Readmission: High Risk Care Management Discharge Plan Reason for Hospitalization: hypomagnesemia Discharge Plan: Chet will be discharged back to [facility] when medically cleared. He will follow up with facility providers and plan of care and transport via [facility] coordinated by CM. CM will follow. Patient/Family Education Needs: Review discharge instructions, discuss Ask Me Three Services Needed at Discharge: [facility] Facility SDOH Health Related Social Needs: No Data to Display
--- NOTE | 2024-06-05 09:49 | W.PM.DS.N ---
Date of service: 06/05/24 Time of Service: 09:49 DS: Diagnosis Discharge Diagnosis (1) Hypomagnesemia: Status: Acute (2) Alcohol abuse: Status: Chronic (3) Chronic anticoagulation: Status: Acute (4) Confusion: Status: Acute Discharge Plan Disposition Patient Disposition: [facility] Facility(SNF) Condition: Stable Condition: Good Discharge Details Reason For Visit: Hypomagnesemia Admit Date/Time: 06/02/24 17:36 Admit Provider: Omega Corbett Attending Provider: Omega Corbett Primary Care Provider: Devyn Benoit Hospital Course Hospital Course: Patient presented to the hospital with recurrent hypomagnesemia with Mg being checked at the [facility] and decreasing down to 0.8. He got IV replacement in the ED and since that time has had his oral Mg replacement increased. Since the increase his Mg level has stabilized over the last 24hrs. It is recommended that he continue to have his Mg levels checked and to increase his oral replacement if needed. It is likely that this is due to chronic malabsorbion, and his levels may never be above 1.8, but can be tolerable down to 1.2 before considering increasing his oral replacement regimen. Additionally, he did has some mild agitation while hospitalized which was not improved with the PRN oral ativan that had been previously prescribed. He was started on scheduled zyprexa which did improve his agitation and it is recommended that this be continued at discharge. Home Meds and New Rx's Prescriptions: New olanzapine 2.5 mg Tablet 2.5 mg PO BID Qty: 90 0RF Continued loratadine [Allergy Relief (loratadine)] 10 mg tablet 10 mg PO DAILY lisinopril 5 mg tablet 5 mg PO DAILY Eliquis 5 mg tablet 5 mg PO BID thiamine HCl (vitamin B1) 100 mg tablet 100 mg PO DAILY dextromethorphan-guaifenesin [Tussin DM] 10-100 mg/5 mL liquid 5 ml PO Q4H PRN (Reason: cough) potassium chloride 20 mEq tablet extended release 20 meq PO DAILY Qty: 30 0RF polyethylene glycol 3350 17 gram Powder In Packet 17 g PO DAILY PRN PRN (Reason: Constipation) Qty: 14 0RF mirtazapine 7.5 mg tablet 7.5 mg PO QHS magnesium gluconate [Mag-G] 27 mg magnesium (500 mg) tablet 27 mg PO TID omeprazole 20 mg capsule,delayed release(DR/EC) 20 mg PO DAILY albuterol sulfate 90 mcg/actuation HFA aerosol inhaler 2 inh inhalation Q6H PRN Foltrate 0.5-1 mg tablet 1 tab PO DAILY Discontinued lorazepam [Ativan] 0.5 mg tablet 2 mg PO Q4H PRN PRN Discharge Instructions Activity:: Activity as Tolerated Equipment/Supplies:: No Equipment Needed Diet:: As Tolerated Discharge Orders Discharge Orders: Discharge Order (Routine); Ordered 06/05/24 Ordered By: Omega Corbett DS: Summary Time Spent with Patient providing and/or coordinating discharge services: Greater than 30 minutes Status at Discharge Functional status at discharge: independent ambulation Overall status at discharge: patient is back to baseline Mental Status: mental status grossly normal Speech and Movement: speech and movement normal Mood: congruent mood Affect: normal affect Quality:SDOH Health Related Social Needs: No Data to Display Exam Narrative Exam Narrative: Well-appearing older gentleman laying in bed in no acute distress, awake, alert, oriented to person only, heart regular rhythm, lungs clear to auscultation bilaterally, abdomen soft, nontender, nondistended Psych Mental Status: mental status grossly normal Speech and Movement: speech and movement normal Mood: congruent mood Affect: normal affect DS: Data Vitals/I&O Vitals and I&O: Vital Signs Temperature 96.9 F L 06/05/24 08:55 Temperature Source Temporal Artery Scan 06/05/24 08:55 Pulse 92 H 06/05/24 08:55 Pulse Rhythm Regular 06/02/24 19:45 Pulse 87 06/02/24 18:31 Respiratory Rate 16 06/05/24 08:55 Respiratory Effort Normal, Non-Labored 06/02/24 19:45 Respiratory Depth Normal 06/02/24 19:45 Respiratory Pattern Normal 06/02/24 19:45 Blood Pressure 129/92 H 06/05/24 08:55 Blood Pressure Mean 105 06/02/24 18:31 Blood Pressure Position Supine 06/02/24 17:14 Pulse Oximetry 97 06/05/24 08:55 Oxygen Delivery Method Room Air 06/05/24 08:55 Oxygen Flow Rate 0 06/05/24 08:55 Pain Level 0 06/05/24 08:55 Comment nurse notified 06/05/24 02:43 Intake & Output 06/04/24 06/05/24 06/05/24 17:59 05:59 17:59 Intake Total 400 / 420 Output Total 200 / 200 Balance -180 / -180 400 / 220 Intake: IV Oral 400 / 400 Output: Urine 200 / 200 Other: Urine Color Yellow Yellow Yellow Urine Appearance Clear Clear Urine Odor Normal Normal Comment in toilet Stool Size Small Small Stool Characteristics Formed Data Completed and Pending Labs on day of discharge: Labs from last 24 hours 06/05/24 06/04/24 07:23 12:45 Sodium 144 Potassium 4.0 Chloride 108 H Carbon Dioxide 25.1 Anion Gap 10.9 BUN 4 L Creatinine 1.0 Est GFR (CKD-EPI 2020) 81.98 Glucose 87 Calcium 10.1 Magnesium 1.5 L 1.4 L PFSH All Active Problems (Updated 06/02/24 @ 18:14 by Omega Corbett MD) Confusion (Acute) Chronic anticoagulation (Acute) Alcohol abuse (Chronic) Hypokalemia (Acute) Hypomagnesemia (Acute) Social History Smoking/Tobacco Use Status: Former Tobacco Use Smoking risk assessment performed?: Yes Alcohol Intake: former Drug use: Never Substance use type: does not use Housing: [facility] Time Spent with Patient Time Spent with Patient: <45 minutes Time was spent: preparing to see the patient(eg.review tests), obtaining and/or reviewing separately otained hiistory, ordering medications,tests, procedures, referring, communicating with other health patient care assistant, indepentently interpreting results, counseling the patient and care coordination
== END 2024-06-05 11:27 | disposition skilled nursing facility (03) ==
LOC: ER 17:32 → MS 18:36
PROVIDERS: Family Medicine; Admitting Provider Family Medicine; Emergency Provider Emergency Medicine; PCP Nurse Practitioner Family; Visit Provider Family Medicine
DX: E83.42 Hypomagnesemia (principal); R41.0 Disorientation, unspecified; F10.10 Alcohol abuse, uncomplicated; Z79.01 Long term (current) use of anticoagulants; F17.220 Nicotine dependence, chewing tobacco, uncomplicated; Z79.899 Other long term (current) drug therapy; R45.1 Restlessness and agitation
CPT/HCPCS: 00123; 36415; 80048; 80053; 85027; 93005; 96365; 96366; 99285; 80320; 83735; 84100; 85025; 93010; 99223; 99233; 99239; J3475

== ENCOUNTER 2024-06-09 13:34 | Outpatient (REF) | payer SELFPAY ==
[2024-06-09 12:11] LABS: ALT 33 U/L (16-63); AST 18 U/L (15-37); Albumin 2.9 g/dL (3.4-5.0); Alkaline Phosphatase 69 U/L (46-116); Anion Gap 9.5 mmol/L (3-11); BUN 9 mg/dL (7-18); Bilirubin, Total 0.32 mg/dL (0.2-1.0); CO2 23.5 mmol/L (21.0-32.0); Calcium 9.4 mg/dL (8.5-10.1); Chloride 108 mmol/L (98-107); Estimated GFR 81.98 (mL/min/1.73m2); Glucose 101 mg/dL (74-106); Magnesium 0.8 mg/dL (1.8-2.4); Potassium 4.2 mmol/L (3.5-5.1); Sodium 141 mmol/L (136-145); Total Protein 6.1 g/dL (6.4-8.2)
== END 2024-06-09 13:35 | disposition home or self-care (01) ==
LOC: LBN 13:34
PROVIDERS: PCP Nurse Practitioner Family; Visit Provider Nurse Practitioner Gerontology
DX: E83.42 Hypomagnesemia (principal); N17.9 Acute kidney failure, unspecified
CPT/HCPCS: 80053; 83735

== ENCOUNTER 2024-06-12 20:46 | Outpatient (REF) | payer SELFPAY ==
[2024-06-12 18:02] LABS: Magnesium 0.8 mg/dL (1.8-2.4)
== END 2024-06-12 20:47 | disposition home or self-care (01) ==
LOC: LBN 20:46
PROVIDERS: PCP Nurse Practitioner Family; Visit Provider Nurse Practitioner Gerontology
DX: E83.42 Hypomagnesemia (principal)
CPT/HCPCS: 83735

== ENCOUNTER 2024-06-16 17:49 | Outpatient (REF) | payer SELFPAY | END 2024-06-16 17:50 | disposition home or self-care (01) | LOC: LBN 17:49 | PROVIDERS: PCP Nurse Practitioner Family; Visit Provider Nurse Practitioner Gerontology | DX: E83.42 Hypomagnesemia (principal) | CPT/HCPCS: 83735 ==

== ENCOUNTER 2024-06-26 18:38 | Outpatient (REF) | payer MEDICARE, SELFPAY ==
[2024-06-26 20:08] LABS: Magnesium 0.9 mg/dL (1.8-2.4)
== END 2024-06-26 18:39 | disposition home or self-care (01) ==
LOC: LBN 18:38
PROVIDERS: Nurse Practitioner Gerontology; PCP Nurse Practitioner Family; Visit Provider Legal Medicine
DX: E83.42 Hypomagnesemia (principal)
CPT/HCPCS: 83735

== ENCOUNTER 2024-06-30 18:02 | Outpatient (REF) | payer MEDICARE, SELFPAY ==
[2024-06-30 19:42] LABS: Magnesium 0.9 mg/dL (1.8-2.4)
== END 2024-06-30 18:03 | disposition home or self-care (01) ==
LOC: LBN 18:02
PROVIDERS: PCP Nurse Practitioner Family; Visit Provider Nurse Practitioner Gerontology
DX: E83.42 Hypomagnesemia (principal)
CPT/HCPCS: 83735

== ENCOUNTER 2024-07-09 22:37 | Outpatient (REF) | payer MEDICARE, SELFPAY ==
[2024-07-09 22:32] LABS: Magnesium 1.7 mg/dL
== END 2024-07-09 22:38 | disposition home or self-care (01) ==
LOC: LBN 22:37
PROVIDERS: PCP Nurse Practitioner Family; Visit Provider Nurse Practitioner Gerontology
DX: E83.42 Hypomagnesemia (principal)
CPT/HCPCS: 83735

== ENCOUNTER 2024-07-21 19:51 | Outpatient (REF) | payer MEDICARE, SELFPAY ==
[2024-07-21 19:51] LABS: Magnesium 1.4 mg/dL
== END 2024-07-21 19:52 | disposition home or self-care (01) ==
LOC: LBN 19:51
PROVIDERS: PCP Nurse Practitioner Family; Visit Provider Nurse Practitioner Gerontology
DX: E83.42 Hypomagnesemia (principal)
CPT/HCPCS: 83735

== ENCOUNTER 2024-07-31 19:02 | Emergency (ER) | payer MEDICARE, SELFPAY ==
[2024-07-31] VITALS (32 sets, daily range): BP systolic 111–135; BP diastolic 68–84; PULSE 73–91; RESP 14–24; TEMP 36.9–37.1; O2SAT 95–99
--- NOTE | 2024-07-31 18:45 | RT.EKG_ITS ---
APPROVED REPORT Exam: Resting ECG Reason for Exam: weakness Patient Location: E HR:83 bpm ECG Measurements Heart Rate 83 AXIS [place] 205 P 52 QRSd 78 QRS -3 QT 374 T 41 QTc 441 Conclusion Sinus rhythm...normal P axis, V-rate 60- 99 ST elevation, consider inferior injury...ST >0.08mV, II III aVF
--- NOTE | 2024-07-31 19:00 | DI.CT_ITS ---
Exam(s) CT BRAIN NECK CTA EXAM: CT BRAIN NECK CTA CLINICAL HISTORY: ?cva. TECHNIQUE: Imaging Protocol: Axial CT angiography was performed with multi-slice acquisition and mu lti-planar and/or 3D reconstructions. CONTRAST MATERIAL: Intravenous: Omnipaque 350 Contrast volume:70 mL COMPARISON: No exams were available for comparison FINDINGS: CTA Neck W: Aortic arch anatomy: The aortic arch anatomy is conventional and there is no significant stenosis at the origin of the great vessels off of the aortic arch. No intimal flap evident. Anterior circulation: Both common carotid arteries ascend with normal luminal diameters. At the level the carotid bulbs and proximal internal carotid arteries there is minimal plaque without hemodynamically significant stenosis evident. Posterior circulation: Both vertebral arteries originate in conventional fashion off of the subclavian arteries and there is no obvious stenosis at the origin of the vertebral arteries. Both vertebral arteries exhibit normal luminal diameters within the foramen transversarium. Both vertebral arteries contribute to the formation of the basilar artery at the skull base. CTA Brain W: Anterior circulation: Both internal carotid arteries are patent in the skull base-carotid canals as well as within the cave rnous sinuses. The supraclinoid aspects of the ICAs are patent. Both A1 segments are patent as are the anterior cer ebral arteries and there is no evidence of aneurysm at the level of the anterior communicating artery . Both middle cerebral arteries are patent with no evidence of significant stenosis nor intraluminal th rombus. There also no aneurysms of these vessels. Posterior circulation: Basilar artery is patent but moderately dolichoectatic but without significant stenosis. Distally it gives off patent bilateral superior cerebellar arteries. Above this level the basilar artery terminates as patent bilateral posterior cerebral arteries. Ther e is a posterior communicating artery also noted on the left side of the [id number] adding circ ulation to the left posterior cerebral artery. At There is no evidence of aneurysm at the tip of the basilar artery nor elsewhere in the pilctv-oe-Succ is. CT BRAIN: There are bilateral convexity subdural hematomas, right larger than left and there is approximately 1 0 mm shift of midline structures to the left and effacement of right-sided basilar cisterns. There i s acute blood evident in the right subdural hematoma as well as an in the most dependent aspect of th e left subdural hematoma. There is a nonhemorrhagic lacunar infarct in the nolvia to the left of center measuring 7 x 5 mm. IMPRESSION: 1. Patent carotid arteries in the neck. No hemodynamically significant stenosis. 2. Patent vertebral arteries. 3. Patent intracranial arteries. 4. There are significant acute subdural hematoma seen bilaterally, right greater than left and with s ignificant mass effect and 1 cm (10 mm) right to left shift of midline structures. Neurosurgery cons ultation recommended. First read by Terry [facility] RADIATION DOSE DELIVERED: 2,164.86mGy.cm Total DLP DATA REPOSITORY: All CT scans at this facility are submitted to the National Radiology Data Registry (NRDR) Dose Index Registry (DIR) with the [employer] (A[employer]). RADIATION OPTIMIZATION: All CT scans at this facility use at least one of these dose optimization te chniques: automated exposure control; mA and/or kV adjustment per patient size (includes targeted exa ms where dose is matched to clinical indication); or iterative reconstruction.
--- NOTE | 2024-07-31 19:13 | ED.GENADUL_ITS ---
Discharge Plan Disposition Specific Acute Inpt Facility: [facility] Condition: Critical Discharge Details Chief Complaint: CVA/TIA Clinical Impression: Intracranial subdural hematoma Primary Care Provider: Devyn Benoit ED Provider: Gary Andersen Home Meds and New Rx's Prescriptions: No Action loratadine [Allergy Relief (loratadine)] 10 mg tablet 10 mg PO DAILY lisinopril 5 mg tablet 5 mg PO DAILY Eliquis 5 mg tablet 5 mg PO BID thiamine HCl (vitamin B1) 100 mg tablet 100 mg PO DAILY dextromethorphan-guaifenesin [Tussin DM] 10-100 mg/5 mL liquid 5 ml PO Q4H PRN (Reason: cough) potassium chloride 20 mEq tablet extended release 20 meq PO DAILY Qty: 30 0RF polyethylene glycol 3350 17 gram Powder In Packet 17 g PO DAILY PRN PRN (Reason: Constipation) Qty: 14 0RF mirtazapine 7.5 mg tablet 7.5 mg PO QHS magnesium gluconate [Mag-G] 27 mg magnesium (500 mg) tablet 27 mg PO TID omeprazole 20 mg capsule,delayed release(DR/EC) 20 mg PO DAILY albuterol sulfate 90 mcg/actuation HFA aerosol inhaler 2 inh inhalation Q6H PRN Foltrate 0.5-1 mg tablet 1 tab PO DAILY olanzapine 2.5 mg Tablet 2.5 mg PO BID Qty: 90 0RF HPI General Mode of arrival: EMS . Date/Time Provider Initiated Documentation: 07/31/24 19:08 . Limitations to Documentation: no limitations . Information obtained by: patient and EMS . History of Present Illness 68 year old M presents to the emergency department with the chief complaint of weakness, facial droop, described as moderate, Patient started experiencing this hour(s) (2) and it has been constant. No relieving factors improve symptom(s), No exacerbating factors reported . Patient notes denies chest pain and shortness of breath. Patient did receive the following treatments prior to arrival, none Related Data Home Medications ?Medication ?Instructions ?Recorded ?Confirmed apixaban 5 mg tablet (Eliquis) 5 mg PO BID 05/27/24 07/31/24 lisinopril 5 mg tablet 5 mg PO DAILY 05/27/24 07/31/24 loratadine 10 mg tablet (Allergy 10 mg PO DAILY 05/27/24 07/31/24 Relief (loratadine)) dextromethorphan-guaifenesin 10 5 ml PO Q4H PRN cough 05/28/24 07/31/24 mg-100 mg/5 mL oral liquid (Tussin DM) polyethylene glycol 3350 17 gram 17 g PO DAILY PRN PRN Constipation 05/28/24 07/31/24 oral powder packet #14 ea potassium chloride 20 mEq 20 meq PO DAILY #30 tabs 05/28/24 07/31/24 tablet,extended release thiamine HCl (vitamin B1) 100 mg 100 mg PO DAILY 05/28/24 07/31/24 tablet albuterol sulfate 90 mcg/actuation 2 inh inhalation Q6H PRN 06/02/24 07/31/24 aerosol inhaler magnesium gluconate 27 mg 27 mg PO TID 06/02/24 07/31/24 magnesium (500 mg) tablet (Mag-G) mirtazapine 7.5 mg tablet 7.5 mg PO QHS 06/02/24 07/31/24 omeprazole 20 mg capsule,delayed 20 mg PO DAILY 06/02/24 07/31/24 release vitamin B12 0.5 mg-folic acid 1 mg 1 tab PO DAILY 06/02/24 07/31/24 tablet (Foltrate) olanzapine 2.5 mg tablet 2.5 mg PO BID #90 tabs 06/05/24 07/31/24 Previous Rx's ?Medication ?Instructions ?Recorded polyethylene glycol 3350 17 gram 17 g PO DAILY PRN PRN Constipation 05/28/24 oral powder packet #14 ea potassium chloride 20 mEq 20 meq PO DAILY #30 tabs 05/28/24 tablet,extended release olanzapine 2.5 mg tablet 2.5 mg PO BID #90 tabs 06/05/24 Allergies Allergy/AdvReac Type Severity Reaction Status Date / Time cephalexin Allergy Mild Unknown Verified 07/31/24 19:27 grass pollen Allergy Mild Unknown Unverified 07/31/24 19:27 Penicillins Allergy Mild Unknown Verified 07/31/24 19:27 venlafaxine (From Effexor) Allergy Mild Unknown Verified 07/31/24 19:27 ragweed pollen Allergy Unknown Verified 07/31/24 19:27 chocolate AdvReac Unknown Unknown Verified 07/31/24 19:27 General DONAVON: 3 Review of Systems All systems reviewed & are unremarkable except as noted in HPI and below Constitutional Constitutional: Denies chills, Denies fever(s) and Reports weakness ENT Ears, Nose, Mouth, and Throat: Reports dizziness Cardiovascular Cardiovascular: Denies chest pain and Denies dyspnea Respiratory Respiratory: Denies cough and Denies dyspnea Gastrointestinal Gastrointestinal: Denies abdominal pain, Denies nausea and Denies vomiting Musculoskeletal Musculoskeletal: Denies joint swelling and Denies numbness Neurologic Neurologic: Reports dizziness, Denies numbness and Reports weakness Exam Const General: no acute distress Orientation: alert [facility] Head: normal to inspection Ears: external ears normal General nose exam: external nose normal Mouth: moist mucous membranes Eyes General: appearance normal, both eyes and all related structures Neck Neck: normal visual inspection Resp Effort & Inspection: normal respiratory effort and able to speak in complete sentences Cardio Rate: regular rate Skin General skin exam: no rashes or lesions noted Neuro General: patient alert and patient oriented x3 Cranial Nerves: PERRL and EOM intact bilaterally Extrem General: normal to inspection Psych Mental Status: mental status grossly normal Medical Decision Making 68-year-old male who is apparently been feeling dizzy for the past few days comes in after he was last known well around 5:00 tonight when he was found to have weakness on his left arm and also some facial droop which was new for him apparently he resides at the [facility] and was transferred here by ambulance. On arrival he is alert and answering questions appropriately with slight slurring of his words. He has mild right-sided facial droop and on exam has mild left arm drift and left leg drift. He has noted to be on Eliquis unclear why he is on this. His NIH on my's exam is 5 due to the facial droop which is 2, 1 for slurring of the speech, 1 for left arm drift and 1 for the left leg drift. Given his complaints and his exam we will proceed with CBC, CMP troponins and a CT CTA and neurology consult. Given he is on Eliquis not a tPA candidate. Patient remained stable with a GCS of 15, CT shows bilateral subdural hematomas right greater than left with mass effect and a 10 mm [id number] midline shift. Patient states she has no headache he just feels dizzy. He has been feeling dizzy for 3 days. He denies any falls. His chest x-ray is unremarkable. Kcentra has been ordered. I have placed a call to [facility] for transfer. Teleneurology evaluation was also still pending at this time I spoke with neurosurgery resident who reviewed the case and recommended giving 2 g of Keppra which I ordered. I spoke with from the ED who is the excepting provider. Patient updated and still has a GCS of 15 currently. Patient initially was notable by [facility] but as they were on their way here they noticed fog so they had to abort. Will now go by ground crew. ECG Data Attestation: I personally reviewed and interpreted this ECG (s) as follows: Prior ECG tracings: available for review Interpretation: Sinus rhythm, rate of 83, [place] 205, no STEMI Quality:SDOH Health Related Social Needs: Health related social needs food insecurity (Z59.41) PFSH All Active Problems Intracranial subdural hematoma (Acute) Confusion (Acute) Chronic anticoagulation (Acute) Alcohol abuse (Chronic) Social History Smoking/Tobacco Use Status: Former Tobacco Use Smoking risk assessment performed?: Yes Alcohol Intake: former Drug use: Never Substance use type: does not use Housing: [facility]
[2024-07-31] MEDS: Omnipaque 350 MG/ML 100 ML BTL IJ (19:23)
[2024-07-31] MEDS: Normal Saline - Diluent 50 ML VIAL IJ (19:24)
[2024-07-31 19:30] LABS: Abs Immature Grans 0.09 10^3/uL (0.0-0.06); Absolute Basophil Count 0.07 10^3/uL (0.0-0.2); Absolute Eosinophil Count 0.27 10^3/uL (0.0-0.7); Absolute Lymphocyte Count 2.47 10^3/uL (1.2-3.4); Absolute Monocyte Count 1.47 10^3/uL (0.1-0.8); Basophils % 0.6 %; Eosinophils % 2.2 %; HCT 35.3 % (40.0-50.0); HGB 11.8 g/dL (13.5-17.5); Immature Grans % 0.7 %; Lymphocytes % 19.8 %; MCH 31.4 pg (27.0-33.0); MCHC 33.4 % (32.0-36.0); MCV 94 fL (80-95); MPV 8.7 fL (8.0-11.0); Monocytes % 11.8 %; Neutrophils % 64.9 %; Platelet Count 378 10^3/uL (130-400); RBC 3.76 10^6/uL (4.36-5.78); RDW 12.8 % (11.8-14.1); RDW-SD 43.8 fL; WBC 12.47 10^3/uL (4.4-10.8)
[2024-07-31 19:32] LABS: Absolute Neutrophil Count 8.09 10^3/uL (1.2-6.7)
--- NOTE | 2024-07-31 19:45 | DI.RAD_ITS ---
Exam(s) XR PORTABLE CHEST AP EXAM: XR PORTABLE CHEST AP CLINICAL HISTORY: leukocytosis, ?pneumonia. TECHNIQUE: 2D digital imaging was performed. COMPARISON: No exams were available for comparison FINDINGS: Single AP portable view. Heart size is upper normal. The mediastinum is not widened. Right lung is clear. There is platelike atelectasis in left lung base. No obvious confluent infiltr ates on this single portable view. No obvious pleural effusions IMPRESSION: Platelike atelectasis in the left lung base. DATA REPOSITORY: RADIATION DOSE DELIVERED:
[2024-07-31 20:01] LABS: Bilirubin Negative (Negative); Blood Negative (Negative); Clarity Clear (Clear); Glucose Negative (Negative); Ketones Negative (Negative); Leukocyte Esterase Negative (Negative); Nitrite Negative (Negative); Urobilinogen 0.2 mg/dL (Up to 0.2); pH 6.5 (5-8)
[2024-07-31 20:06] LABS: INR 1.1 (0.9-1.1); PTT Activated 28.5 sec (20.6-30.2)
[2024-07-31 20:08] LABS: ALT 15 U/L (16-63); AST 17 U/L (15-37); Albumin 2.7 g/dL (3.4-5.0); Alkaline Phosphatase 64 U/L (46-116); BUN 9 mg/dL (7-18); Bilirubin, Total 0.3 mg/dL (0.2-1.0); CREATININE 0.9 mg/dL (0.70-1.30); Calcium 8.6 mg/dL (8.5-10.1); Chloride 99 mmol/L (98-107); Estimated GFR 93.03 (mL/min/1.73m2); Glucose 108 mg/dL (74-106); Potassium 3.8 mmol/L (3.5-5.1); Sodium 133 mmol/L (136-145); Total Protein 6.1 g/dL (6.4-8.2)
--- NOTE | 2024-07-31 20:15 | DI.VRAD_ITS ---
Addendum created by Lu Lugo MD on 07/31/2024 8:16:26 PM EDT: THIS REPORT CONTAINS FINDINGS THAT MAY BE CRITICAL TO PATIENT CARE. The findings were verbally communicated via telephone conference with Gary Andersen at 8:16 PM EDT on 07/31/2024. The findings were acknowledged and understood. Initial report created on 07/31/2024 8:14:30 PM EDT: PROCEDURE INFORMATION: Exam: CTA Head Without And With Contrast, Arteriography Exam date and time: 07/31/2024 7:24 PM Age: 68 years old Clinical indication: Stroke-like symptoms; Speech disturbance; Left facial droop TECHNIQUE: Imaging protocol: Computed tomographic angiography of the head without and with contrast. Exam focused on the arteries. 3D rendering (Not supervised by radiologist): MIP and/or 3D reconstructed images were created by the technologist. Radiation optimization: All CT scans at this facility use at least one of these dose optimization techniques: automated exposure control; mA and/or kV adjustment per patient size (includes targeted exams where dose is matched to clinical indication); or iterative reconstruction. Contrast material: [id number]; Contrast volume: 70 ml; Contrast route: INTRAVENOUS (IV); Other technique: STROKE PROTOCOL was implemented. COMPARISON: No relevant prior studies available. FINDINGS: ANTERIOR CIRCULATION: Right internal carotid artery: Intracranial segment is patent with no significant stenosis or occlusion. No aneurysm. Right middle cerebral artery: No occlusion or significant stenosis. No aneurysm. Right anterior cerebral artery: No occlusion or significant stenosis. No aneurysm. Left internal carotid artery: Intracranial segment is patent with no significant stenosis. No aneurysm. Left middle cerebral artery: No occlusion or significant stenosis. No aneurysm. Left anterior cerebral artery: No occlusion or significant stenosis. No aneurysm. POSTERIOR CIRCULATION: Right vertebral artery: No occlusion or significant stenosis. No aneurysm. Left vertebral artery: No occlusion or significant stenosis. No aneurysm. Basilar artery: No occlusion or significant stenosis. No aneurysm. Right posterior cerebral artery: Beaded appearance. Multifocal areas moderate and severe stenosis throughout the P1, P2 and P3 segments. Left posterior cerebral artery: Beaded appearance with multifocal areas of moderate and severe stenoses throughout the P1, P2 and P3 segments. HEAD: Brain: A left-sided panhemispheric mixed density subdural hematoma is seen measuring 7 mm in thickness. The subdural hematoma is hypodense anteriorly with hyperdense lines seen dependently. A mixed density right panhemispheric subdural hematoma is seen, measuring up to 13 mm. Significant mass effect with 10 mm of [id number] midline shift and effacement of the right basilar cisterns are present. A focal area of gliosis is seen centrally within the nolvia just to left of midline measuring 8 mm. This likely represents a chronic lacunar infarct. Volume loss throughout the brain parenchyma. Scattered areas of low-attenuation are seen throughout the subcortical and periventricular white matter. Cerebral ventricles: Moderate compression of the right lateral ventricle and 3rd ventricle. No hydrocephalus. Bones: No evidence for an acute fracture, given limitations of motion degradation. Paranasal sinuses: Mild mucosal thickening throughout the paranasal sinuses with a small amount of fluid seen within the left maxillary sinus. Mastoid air cells: The mastoid air cells are well aerated. Soft tissues: Unremarkable. Other findings: The images are significantly motion degraded along the skull base. IMPRESSION: 1. Large acute subdural hematomas, right greater than left, with significant mass effect and a 10 mm [id number] midline shift. Neurosurgical consultation is recommended. 2. The bilateral brick burner head have a beaded appearance with multifocal areas of moderate and severe stenosis. No occlusion. 3. Otherwise, no large vessel occlusion or high-grade stenosis within the intracranial arteries. ASSESSMENT: ASPECTS (Rose Stroke Program Early CT Score) is 10. PROCEDURE INFORMATION: Exam: CTA Neck Without And With Contrast Exam date and time: 07/31/2024 7:24 PM Age: 68 years old Clinical indication: Stroke-like symptoms; Speech disturbance; Left facial droop TECHNIQUE: Imaging protocol: Computed tomographic angiography of the neck without and with contrast. Exam focused on the cervical segments of the vasculature. 3D rendering (Not supervised by radiologist): MIP and/or 3D reconstructed images were created by the technologist. Radiation optimization: All CT scans at this facility use at least one of these dose optimization techniques: automated exposure control; mA and/or kV adjustment per patient size (includes targeted exams where dose is matched to clinical indication); or iterative reconstruction. Contrast material: [id number]; Contrast volume: 70 ml; Contrast route: INTRAVENOUS (IV); COMPARISON: No relevant prior studies available. FINDINGS: Right common carotid artery: No stenosis. No dissection or occlusion. Right internal carotid artery: No stenosis of the extracranial segment. No dissection or occlusion. Right external carotid artery: No occlusion or stenosis of the origin. Left common carotid artery: No stenosis. No dissection or occlusion. Left internal carotid artery: No stenosis of the extracranial segment. No dissection or occlusion. Left external carotid artery: No occlusion or stenosis of the origin. Right vertebral artery: No stenosis. No dissection or occlusion. Left vertebral artery: No stenosis. No dissection or occlusion. Aorta: The great vessels the level of the aortic arch opacify normally with contrast without stenosis or occlusion. Soft tissues: Normal. No significant soft tissue swelling. Bones/joints: No acute fracture. Diffuse cervical pronounced C4-C5, and C6-C7 we are varying degrees of to severe neural foraminal stenosis canal stenosis are present. Grade listhesis C3 on C4, C7 on T1, T1 on T2 and T2 on T3. A 5 mm lesion is seen centrally within the C3 vertebral body, nonspecific. Lungs: Mild bronchial cuffing. The imaged lung apices are well aerated. IMPRESSION: No stenosis or occlusion within the extracranial/cervical arteries. Please see above dedicated CTA head report for more detailed description of the intracranial findings. REFERENCES: NASCET CRITERIA. The degree of stenosis in the cervical segment of the internal carotid artery is based on NASCET criteria. Normal is no stenosis. Mild is less than 50% stenosis. Moderate is 50-69% stenosis. Severe is 70% to 99% stenosis. Total occlusion is no detectable patent lumen. Dictated and Authenticated by: Lu Lugo MD. Orderin Ganesh Vega MD
--- NOTE | 2024-07-31 20:16 | DI.VRAD_ITS ---
PROCEDURE INFORMATION: Exam: XR Chest Exam date and time: 07/31/2024 8:11 PM Age: 68 years old Clinical indication: Other: Leukocytosis, ? pneumonia TECHNIQUE: Imaging protocol: Radiologic exam of the chest. Views: 1 view. COMPARISON: CT BRAIN NECK CTA 07/31/2024 7:24 PM FINDINGS: Lungs: The lungs are clear without infiltrate or edema. Pleural spaces: No pleural effusion. No pneumothorax. Heart/Mediastinum: The cardiac silhouette is normal in size. Bones/joints: No acute osseous abnormality. IMPRESSION: No acute findings. Dictated and Authenticated by: Lu Lugo MD. Orderin Ganesh Vega MD
[2024-07-31 20:29] LABS: Magnesium 1.3 mg/dL; Troponin I 5 ng/L (<or=76)
[2024-07-31] MEDS: levETIRAcetam 2,000 MG in Normal Saline 100 ML 400 MG IVPB (21:01)
[2024-07-31] MEDS: HUMAN PROTHROM. CMPX. 2,000 UNIT in EMPTY EVACUATED CONTAINER 1 EACH 360 UNIT IV (21:06)
== END 2024-07-31 22:13 | disposition short-term general hospital (02) ==
LOC: ER 21:17
PROVIDERS: Emergency Provider Emergency Medicine; PCP Nurse Practitioner Family
DX: S06.5X0A Traumatic subdural hemorrhage without loss of consciousness, initial encounter (principal); Z86.711 Personal history of pulmonary embolism; Z79.01 Long term (current) use of anticoagulants; Z87.891 Personal history of nicotine dependence; X58.XXXA Exposure to other specified factors, initial encounter
CPT/HCPCS: 36415; 70496; 70498; 80053; 82962; 93005; 96374; 96375; 99285; 71045; 81003; 83735; 84439; 84443; 84484; 85025; 85610; 85730; 93010; J1953; J3490; J7168

== ENCOUNTER 2024-08-11 17:50 | Outpatient (REF) | payer SELFPAY ==
[2024-08-11 17:58] LABS: Abs Immature Grans 0.09 10^3/uL (0.0-0.06); Absolute Basophil Count 0.08 10^3/uL (0.0-0.2); Absolute Eosinophil Count 0.42 10^3/uL (0.0-0.7); Absolute Monocyte Count 1.01 10^3/uL (0.1-0.8); Absolute Neutrophil Count 7.63 10^3/uL (1.2-6.7); Basophils % 0.7 %; Eosinophils % 3.5 %; HCT 33.8 % (40.0-50.0); Immature Grans % 0.7 %; Lymphocytes % 23.3 %; MCH 30.7 pg (27.0-33.0); MCHC 32.5 % (32.0-36.0); MCV 94 fL (80-95); MPV 8.9 fL (8.0-11.0); Monocytes % 8.4 %; Neutrophils % 63.4 %; Platelet Count 561 10^3/uL (130-400); RBC 3.58 10^6/uL (4.36-5.78); RDW 12.2 % (11.8-14.1); RDW-SD 42.6 fL; WBC 12.03 10^3/uL (4.4-10.8)
[2024-08-11 18:07] LABS: ALT 33 U/L (16-63); AST 20 U/L (15-37); Albumin 3.1 g/dL (3.4-5.0); Alkaline Phosphatase 75 U/L (46-116); Anion Gap 12.2 mmol/L (3-11); BUN 10 mg/dL (7-18); Bilirubin, Total 0.2 mg/dL (0.2-1.0); CO2 25.8 mmol/L (21.0-32.0); CREATININE 0.9 mg/dL (0.70-1.30); Calcium 9.7 mg/dL (8.5-10.1); Chloride 105 mmol/L (98-107); Estimated GFR 93.03 (mL/min/1.73m2); Glucose 122 mg/dL (74-106); Magnesium 1.4 mg/dL (1.8-2.4); Potassium 4.4 mmol/L (3.5-5.1); Sodium 143 mmol/L (136-145); Total Protein 6.7 g/dL (6.4-8.2)
== END 2024-08-11 17:51 | disposition home or self-care (01) ==
LOC: LBN 17:50
PROVIDERS: PCP Legal Medicine; Visit Provider Nurse Practitioner Gerontology
DX: E87.6 Hypokalemia (principal); E83.42 Hypomagnesemia
CPT/HCPCS: 80053; 83735; 85025

== ENCOUNTER 2024-08-15 09:43 | Emergency (ER) | payer MEDICARE, MEDICAID, SELFPAY ==
[2024-08-15] VITALS (20 sets, daily range): BP systolic 113–135; BP diastolic 65–87; PULSE 72–93; RESP 8–33; TEMP 36.6; O2SAT 95–98
--- NOTE | 2024-08-15 10:30 | DI.CT_ITS ---
Exam(s) CT HEAD WO EXAM: CT HEAD WO CLINICAL HISTORY: headache, recent sdh now post drain. TECHNIQUE: Imaging Protocol: Axial computed tomography images with coronal and sagittal reformatted images were created and reviewed COMPARISON: CT CT BRAIN NECK CTA from 07/31/2024 FINDINGS: There has been interval bilateral drainage procedures. Three skin clips on the right scalp are of th e right frontal region are noted over a bur hole site. No skull fractures nor prominent fluid in the paranasal sinuses. Mild mucosal thickening noted in left maxillary sinus. There are bilateral subdural collections noted, right larger than left. Minimal amount of remaining hyperdense in the dependent aspect of the right extra-axial collection. No hyperdense fluid on the l eft. There is her effacement of sulci in the right frontal lobe the but no shift of midline structur es at this time. There is no blood in the basal cisterns.. No blood in the ventricular system. The maximum thickness of the right subdural collection is 17 mm, this over the right frontal region. The maximum thickness of the left subdural convexity collection is 5 mm. Nonhemorrhagic lacunar infarct is again noted in the mid nolvia. No new territorial infarcts. IMPRESSION: Bilateral extra-axial subdural collections as described above, right larger than left. Left side sim ilar to previous. Right side may be slightly larger but contains significantly less hyperdense blood than on 07/31/2024. There is no shift of midline structures at this time. There is no blood in the basal cisterns. Called to ER 08/15/2024 at 11:28 a.m. RADIATION DOSE DELIVERED: 878.47mGy.cm Total DLP DATA REPOSITORY: All CT scans at this facility are submitted to the National Radiology Data Registry (NRDR) Dose Index Registry (DIR) with the [employer] (ACR). RADIATION OPTIMIZATION: All CT scans at this facility use at least one of these dose optimization te chniques: automated exposure control; mA and/or kV adjustment per patient size (includes targeted exa ms where dose is matched to clinical indication); or iterative reconstruction.
--- NOTE | 2024-08-15 11:51 | W.ED.GENAD ---
Discharge Plan Disposition Patient Disposition: Detention Facility(SNF) Condition: Stable Discharge Details Clinical Impression: SDH (subdural hematoma) Primary Care Provider: Tita Hernandez ED Provider: Rafael Tee Home Meds and New Rx's Prescriptions: Continued loratadine [Allergy Relief (loratadine)] 10 mg tablet 10 mg PO DAILY lisinopril 5 mg tablet 5 mg PO DAILY Eliquis 5 mg tablet 2.5 mg PO BID thiamine HCl (vitamin B1) 100 mg tablet 100 mg PO DAILY dextromethorphan-guaifenesin [Tussin DM] 10-100 mg/5 mL liquid 5 ml PO Q4H PRN (Reason: cough) potassium chloride 20 mEq tablet extended release 20 meq PO DAILY Qty: 30 0RF polyethylene glycol 3350 17 gram Powder In Packet 17 g PO DAILY PRN PRN (Reason: Constipation) Qty: 14 0RF mirtazapine 7.5 mg tablet 15 mg PO QHS magnesium gluconate [Mag-G] 27 mg magnesium (500 mg) tablet 27 mg PO TID omeprazole 20 mg capsule,delayed release(DR/EC) 20 mg PO DAILY albuterol sulfate 90 mcg/actuation HFA aerosol inhaler 2 inh inhalation Q6H PRN Foltrate 0.5-1 mg tablet 1 tab PO DAILY olanzapine 2.5 mg Tablet 2.5 mg PO BID Qty: 90 0RF levetiracetam 500 mg tablet 500 mg PO BID Discharge Instructions Additional Instructions: Please follow-up with your primary care physician. Please follow-up with neurosurgery as scheduled on September 03. Neurosurgery has recommended that you have another outpatient CT of your head in 1 week. Return to the emergency department immediately for any worsening or new concerning symptoms. Referrals: Tita Hernandez [Primary Care Provider] - [facility] General Mode of arrival: EMS. Date/Time Provider Initiated Documentation: 08/15/24 10:06. Limitations to Documentation: no limitations. Information obtained by: patient. HPI Narrative: HISTORY OF PRESENT ILLNESS 68-year-old male with nontraumatic subdural hemorrhage status post drain, presenting from senior living for mild headache at the main ED alcohol there I does not ensure that kids make an urine or given fluids but will check with the nurse denies I cannot talk to take care of tube nursing should there. Accompanied by nurse. Nurse reports headache this morning, similar to previous episode of spontaneous subdural hemorrhage. Referred to facility. [place] removal scheduled for today. Reports mild headache, no recent falls, numbness, tingling, weakness, or visual disturbances. Related Data Home Medications ?Medication ?Instructions ?Recorded ?Confirmed apixaban 5 mg tablet (Eliquis) 2.5 mg PO BID 05/27/24 08/15/24 lisinopril 5 mg tablet 5 mg PO DAILY 05/27/24 08/15/24 loratadine 10 mg tablet (Allergy 10 mg PO DAILY 05/27/24 08/15/24 Relief (loratadine)) dextromethorphan-guaifenesin 10 5 ml PO Q4H PRN cough 05/28/24 08/15/24 mg-100 mg/5 mL oral liquid (Tussin DM) polyethylene glycol 3350 17 gram 17 g PO DAILY PRN PRN Constipation 05/28/24 08/15/24 oral powder packet #14 ea potassium chloride 20 mEq 20 meq PO DAILY #30 tabs 05/28/24 08/15/24 tablet,extended release thiamine HCl (vitamin B1) 100 mg 100 mg PO DAILY 05/28/24 08/15/24 tablet albuterol sulfate 90 mcg/actuation 2 inh inhalation Q6H PRN 06/02/24 08/15/24 aerosol inhaler magnesium gluconate 27 mg 27 mg PO TID 06/02/24 08/15/24 magnesium (500 mg) tablet (Mag-G) mirtazapine 7.5 mg tablet 15 mg PO QHS 06/02/24 08/15/24 omeprazole 20 mg capsule,delayed 20 mg PO DAILY 06/02/24 08/15/24 release vitamin B12 0.5 mg-folic acid 1 mg 1 tab PO DAILY 06/02/24 08/15/24 tablet (Foltrate) olanzapine 2.5 mg tablet 2.5 mg PO BID #90 tabs 06/05/24 08/15/24 levetiracetam 500 mg tablet 500 mg PO BID 08/15/24 08/15/24 Previous Rx's ?Medication ?Instructions ?Recorded polyethylene glycol 3350 17 gram 17 g PO DAILY PRN PRN Constipation 05/28/24 oral powder packet #14 ea potassium chloride 20 mEq 20 meq PO DAILY #30 tabs 05/28/24 tablet,extended release olanzapine 2.5 mg tablet 2.5 mg PO BID #90 tabs 06/05/24 Allergies Allergy/AdvReac Type Severity Reaction Status Date / Time cephalexin Allergy Mild Unknown Verified 08/15/24 09:55 grass pollen Allergy Mild Unknown Unverified 08/15/24 09:55 Penicillins Allergy Mild Unknown Verified 08/15/24 09:55 venlafaxine (From Effexor) Allergy Mild Unknown Verified 08/15/24 09:55 ragweed pollen Allergy Unknown Verified 08/15/24 09:55 chocolate AdvReac Unknown Unknown Verified 07/31/24 19:27 General Stated Complaint: AMS/LOC DONAVON: 3 Review of Systems All systems reviewed & are unremarkable except as noted in HPI and below Exam Narrative Exam Narrative: PHYSICAL EXAM General Appearance: Normal. Vital signs: Within normal limits. HEENT: Extraocular movements normal. Accommodation normal. Pupils equal, round, reactive. Cranial nerves intact. Respiratory: Lungs clear. Cardiovascular: Heart regular rate and rhythm. Gastrointestinal: Abdomen soft, nontender. Extremities: Full strength in upper extremities, sensation intact. Skin: Warm and dry, no rash. Neurological: Oriented x3. Moving all extremities with 5 out of 5 strength all extremities. Distal sensation intact all extremities. Cranial nerves intact. Course Vital Signs Vital signs: Vital Signs Temperature 36.6 C 08/15/24 09:46 Pulse 88 08/15/24 09:46 Respiratory Rate 16 08/15/24 09:46 Blood Pressure 113/80 08/15/24 09:46 Pulse Oximetry 96 08/15/24 09:46 Temperature 36.6 C 08/15/24 09:55 Pulse 82 08/15/24 11:40 Pulse 79 08/15/24 11:40 Respiratory Rate 33 H 08/15/24 11:40 Respiratory Effort Normal 08/15/24 09:55 Respiratory Depth Normal 08/15/24 09:55 Respiratory Pattern Normal 08/15/24 09:55 Blood Pressure 118/65 08/15/24 11:40 Blood Pressure Mean 90 08/15/24 10:16 Pulse Oximetry 97 08/15/24 11:40 Pain Level 0 08/15/24 09:55 Medical Decision Making ASSESSMENT AND PLAN Initial Assessment: 68-year-old male with nontraumatic subdural hemorrhage status post drain, presenting with headache and altered mental status. ED Course: - CT head reviewed and interpreted by radiology: bilateral extra-axial subdural collections, right larger than left, left side similar to previous, right side slightly larger, less hyperdense blood compared to 07/31/2024, no midline shift, no blood in basal cisterns. - Consulted neurosurgery at [facility], CT sent for review, discussed ED presentation and exam. - Neurosurgery recommended discharge with 1-week follow-up CT and scheduled appointment on September 03. - Tylenol offered for headache. Final Assessment: Reviewed CT head showing bilateral extra-axial subdural collections with no midline shift or blood in basal cisterns. Neurosurgery consulted, findings likely normal postoperative progression. Plan for discharge with follow-up CT in 1 week and neurosurgery appointment. Clinical Impression: - Nontraumatic subdural hemorrhage Disposition: - Discharge back to nursing facility - Follow-Up: 1-week follow-up CT and neurosurgery appointment on September 03 MDM Components Evaluation: - Number of Differential Diagnoses or Management Options: Nontraumatic subdural hemorrhage - Amount and Complexity of Data Reviewed: CT head, neurosurgery consultation - Risk of Complication and Morbidity or Mortality: Moderate due to recent subdural hemorrhage and postoperative status This document was written with the assistance of NGHIA Zayas. The patient consented to its use. Quality:SDOH Health Related Social Needs: Health related social needs food insecurity (Z59.41) PFSH All Active Problems SDH (subdural hematoma) (Acute) Intracranial subdural hematoma (Acute) Confusion (Acute) Chronic anticoagulation (Acute) Alcohol abuse (Chronic) Social History Smoking/Tobacco Use Status: Former Tobacco Use Smoking risk assessment performed?: Yes Alcohol Intake: former Drug use: Never Substance use type: does not use Housing: senior living
== END 2024-08-15 12:16 | disposition skilled nursing facility (03) ==
PROVIDERS: Emergency Provider Student in an Organized Health Care Education/Training Program; PCP Legal Medicine
DX: R51.9 Headache, unspecified (principal); R41.82 Altered mental status, unspecified; S06.5X0D Traumatic subdural hemorrhage without loss of consciousness, subsequent encounter; Z98.2 Presence of cerebrospinal fluid drainage device; Z87.891 Personal history of nicotine dependence
CPT/HCPCS: 82962; 99284; 70450

== ENCOUNTER 2024-08-19 19:36 | Outpatient (REF) | payer MEDICARE, SELFPAY ==
[2024-08-19 18:16] LABS: Abs Immature Grans 0.05 10^3/uL (0.0-0.06); Absolute Basophil Count 0.08 10^3/uL (0.0-0.2); Absolute Eosinophil Count 0.13 10^3/uL (0.0-0.7); Absolute Lymphocyte Count 1.27 10^3/uL (1.2-3.4); Absolute Monocyte Count 1.03 10^3/uL (0.1-0.8); Absolute Neutrophil Count 5.55 10^3/uL (1.2-6.7); Eosinophils % 1.6 %; HCT 32.5 % (40.0-50.0); HGB 10.8 g/dL (13.5-17.5); Immature Grans % 0.6 %; Lymphocytes % 15.7 %; MCH 30.1 pg (27.0-33.0); MCHC 33.2 % (32.0-36.0); MCV 91 fL (80-95); MPV 8.9 fL (8.0-11.0); Monocytes % 12.7 %; Neutrophils % 68.4 %; Platelet Count 516 10^3/uL (130-400); RBC 3.59 10^6/uL (4.36-5.78); RDW 12.5 % (11.8-14.1); RDW-SD 41.6 fL; WBC 8.11 10^3/uL (4.4-10.8)
[2024-08-19 18:17] LABS: Bilirubin Negative (Negative); Blood Negative (Negative); Clarity Clear (Clear); Glucose Negative (Negative); Ketones Negative (Negative); Leukocyte Esterase Negative (Negative); Nitrite Negative (Negative); Specific Gravity 1.015 (1.005-1.025); Urobilinogen 0.2 mg/dL (Up to 0.2)
[2024-08-19 18:27] LABS: ALT 20 U/L (16-63); AST 11 U/L (15-37); Albumin 3.1 g/dL (3.4-5.0); Alkaline Phosphatase 83 U/L (46-116); Anion Gap 8.7 mmol/L (3-11); BUN 12 mg/dL (7-18); Bilirubin, Total 0.2 mg/dL (0.2-1.0); CO2 26.3 mmol/L (21.0-32.0); CREATININE 1.2 mg/dL (0.70-1.30); Calcium 9.4 mg/dL (8.5-10.1); Chloride 101 mmol/L (98-107); Estimated GFR 65.87 (mL/min/1.73m2); Glucose 102 mg/dL (74-106); Magnesium 1.2 mg/dL (1.8-2.4); Sodium 136 mmol/L (136-145); Total Protein 6.6 g/dL (6.4-8.2)
== END 2024-08-19 19:37 | disposition home or self-care (01) ==
LOC: LBN 19:36
PROVIDERS: PCP Legal Medicine; Visit Provider Nurse Practitioner Gerontology
DX: E83.42 Hypomagnesemia (principal); D63.1 Anemia in chronic kidney disease; E87.8 Other disorders of electrolyte and fluid balance, not elsewhere classified
CPT/HCPCS: 80053; 81003; 83735; 85025; 87086

== ENCOUNTER 2024-08-28 21:58 | Outpatient (REF) | payer MEDICARE, MEDICAID, SELFPAY ==
[2024-08-28 20:04] LABS: Magnesium 1.3 mg/dL (1.8-2.4)
== END 2024-08-28 21:59 | disposition home or self-care (01) ==
LOC: LBN 21:58
PROVIDERS: PCP Legal Medicine; Visit Provider Nurse Practitioner Gerontology
DX: E83.42 Hypomagnesemia (principal)
CPT/HCPCS: 83735

== ENCOUNTER 2024-09-15 18:26 | Outpatient (REF) | payer MEDICARE, MEDICAID, SELFPAY ==
[2024-09-15 18:54] LABS: Abs Immature Grans 0.07 10^3/uL (0.0-0.06); Absolute Basophil Count 0.09 10^3/uL (0.0-0.2); Absolute Eosinophil Count 0.52 10^3/uL (0.0-0.7); Absolute Monocyte Count 0.98 10^3/uL (0.1-0.8); Absolute Neutrophil Count 5.77 10^3/uL (1.2-6.7); Eosinophils % 5.6 %; HCT 38.4 % (40.0-50.0); HGB 12.7 g/dL (13.5-17.5); Immature Grans % 0.8 %; Lymphocytes % 20.4 %; MCH 29.3 pg (27.0-33.0); MCHC 33.1 % (32.0-36.0); MCV 89 fL (80-95); MPV 8.7 fL (8.0-11.0); Monocytes % 10.5 %; Neutrophils % 61.7 %; Platelet Count 398 10^3/uL (130-400); RBC 4.34 10^6/uL (4.36-5.78); RDW 12.9 % (11.8-14.1); RDW-SD 42.3 fL; WBC 9.33 10^3/uL (4.4-10.8)
[2024-09-15 19:02] LABS: ALT 25 U/L (16-63); AST 17 U/L (15-37); Albumin 3.4 g/dL (3.4-5.0); Alkaline Phosphatase 90 U/L (46-116); Anion Gap 12.5 mmol/L (3-11); BUN 13 mg/dL (7-18); Bilirubin, Total 0.2 mg/dL (0.2-1.0); CO2 24.5 mmol/L (21.0-32.0); Calcium 9.6 mg/dL (8.5-10.1); Chloride 103 mmol/L (98-107); Estimated GFR 81.98 (mL/min/1.73m2); Glucose 113 mg/dL (74-106); Magnesium 1.5 mg/dL (1.8-2.4); Potassium 4.5 mmol/L (3.5-5.1); Sodium 140 mmol/L (136-145); Total Protein 6.9 g/dL (6.4-8.2)
== END 2024-09-15 18:27 | disposition home or self-care (01) ==
LOC: LBN 18:26
PROVIDERS: PCP Legal Medicine; Visit Provider Nurse Practitioner Gerontology
DX: E87.5 Hyperkalemia (principal)
CPT/HCPCS: 80053; 83735; 85025

== ENCOUNTER 2024-10-06 19:34 | Outpatient (REF) | payer MEDICARE, MEDICAID, SELFPAY ==
[2024-10-06 19:50] LABS: Abs Immature Grans 0.06 10^3/uL (0.0-0.06); Absolute Basophil Count 0.04 10^3/uL (0.0-0.2); Absolute Eosinophil Count 0.34 10^3/uL (0.0-0.7); Absolute Lymphocyte Count 2.59 10^3/uL (1.2-3.4); Absolute Monocyte Count 1.14 10^3/uL (0.1-0.8); Absolute Neutrophil Count 5.72 10^3/uL (1.2-6.7); Basophils % 0.4 %; Eosinophils % 3.4 %; HGB 12.6 g/dL (13.5-17.5); Immature Grans % 0.6 %; Lymphocytes % 26.2 %; MCH 28.9 pg (27.0-33.0); MCHC 33.2 % (32.0-36.0); MCV 87 fL (80-95); MPV 8.7 fL (8.0-11.0); Monocytes % 11.5 %; Neutrophils % 57.9 %; Platelet Count 378 10^3/uL (130-400); RBC 4.36 10^6/uL (4.36-5.78); RDW-SD 41.1 fL; WBC 9.89 10^3/uL (4.4-10.8)
[2024-10-06 20:04] LABS: BUN 16 mg/dL (7-18); CREATININE 1.1 mg/dL (0.70-1.30); Calcium 9.3 mg/dL (8.5-10.1); Chloride 100 mmol/L (98-107); Estimated GFR 73.12 (mL/min/1.73m2); Glucose 102 mg/dL (74-106); Magnesium 1.5 mg/dL (1.8-2.4); Potassium 4.1 mmol/L (3.5-5.1); Sodium 134 mmol/L (136-145)
== END 2024-10-06 19:35 | disposition home or self-care (01) ==
LOC: LBN 19:34
PROVIDERS: PCP Legal Medicine; Visit Provider Nurse Practitioner Gerontology
DX: E83.42 Hypomagnesemia (principal); D63.1 Anemia in chronic kidney disease
CPT/HCPCS: 80048; 83735; 85025

== ENCOUNTER 2024-11-03 18:51 | Outpatient (REF) | payer MEDICARE, MEDICAID, SELFPAY ==
[2024-11-03 18:50] LABS: Abs Immature Grans 0.09 10^3/uL (0.0-0.06); HCT 38.7 % (40.0-50.0); HGB 13.0 g/dL (13.5-17.5); Immature Grans % 0.8 %; MCH 29.5 pg (27.0-33.0); MCHC 33.6 % (32.0-36.0); MCV 88 fL (80-95); MPV 8.8 fL (8.0-11.0); Platelet Count 395 10^3/uL (130-400); RBC 4.41 10^6/uL (4.36-5.78); RDW 13.8 % (11.8-14.1); RDW-SD 43.1 fL; WBC 11.14 10^3/uL (4.4-10.8)
[2024-11-03 18:56] LABS: Anion Gap 14.3 mmol/L (3-11); BUN 15 mg/dL (7-18); CO2 20.7 mmol/L (21.0-32.0); Calcium 9.4 mg/dL (8.5-10.1); Chloride 101 mmol/L (98-107); Estimated GFR 95.80 (mL/min/1.73m2); Glucose 106 mg/dL (74-106); Magnesium 1.5 mg/dL (1.8-2.4); Potassium 4.4 mmol/L (3.5-5.1); Sodium 136 mmol/L (136-145)
== END 2024-11-03 18:52 | disposition home or self-care (01) ==
LOC: LBN 18:51
PROVIDERS: PCP Legal Medicine; Visit Provider Nurse Practitioner Gerontology
DX: D63.1 Anemia in chronic kidney disease (principal); E87.8 Other disorders of electrolyte and fluid balance, not elsewhere classified; E83.42 Hypomagnesemia
CPT/HCPCS: 80048; 83735; 85025

== ENCOUNTER 2024-11-24 18:23 | Outpatient (REF) | payer MEDICARE, MEDICAID, SELFPAY ==
[2024-11-24 18:32] LABS: Abs Immature Grans 0.05 10^3/uL (0.0-0.06); HCT 40.7 % (40.0-50.0); HGB 13.3 g/dL (13.5-17.5); Immature Grans % 0.5 %; MCH 28.1 pg (27.0-33.0); MCHC 32.7 % (32.0-36.0); MCV 86 fL (80-95); MPV 8.8 fL (8.0-11.0); Platelet Count 400 10^3/uL (130-400); RBC 4.74 10^6/uL (4.36-5.78); RDW 14.0 % (11.8-14.1); RDW-SD 43.8 fL; WBC 10.81 10^3/uL (4.4-10.8)
[2024-11-24 18:45] LABS: ALT 26 U/L (16-63); AST 17 U/L (15-37); Albumin 3.6 g/dL (3.4-5.0); Alkaline Phosphatase 86 U/L (46-116); Anion Gap 12.8 mmol/L (3-11); BUN 9 mg/dL (7-18); Bilirubin, Total 0.2 mg/dL (0.2-1.0); CO2 23.2 mmol/L (21.0-32.0); Calcium 9.4 mg/dL (8.5-10.1); Chloride 99 mmol/L (98-107); Estimated GFR 92.45 (mL/min/1.73m2); Glucose 91 mg/dL (74-106); Magnesium 1.7 mg/dL (1.8-2.4); Potassium 4.4 mmol/L (3.5-5.1); Sodium 135 mmol/L (136-145); Total Protein 6.8 g/dL (6.4-8.2)
== END 2024-11-24 18:24 | disposition home or self-care (01) ==
LOC: LBN 18:23
PROVIDERS: PCP Legal Medicine; Visit Provider Nurse Practitioner Gerontology
DX: E87.8 Other disorders of electrolyte and fluid balance, not elsewhere classified (principal)
CPT/HCPCS: 80053; 83735; 85025

== ENCOUNTER 2025-01-06 15:00 | Outpatient (REF) | payer MEDICARE, MEDICAID, SELFPAY ==
[2025-01-06 14:43] LABS: Abs Immature Grans 0.13 10^3/uL (0.0-0.06); HCT 40.4 % (40.0-50.0); HGB 13.6 g/dL (13.5-17.5); Immature Grans % 0.9 %; MCH 28.3 pg (27.0-33.0); MCHC 33.7 % (32.0-36.0); MCV 84 fL (80-95); MPV 8.8 fL (8.0-11.0); Platelet Count 357 10^3/uL (130-400); RBC 4.81 10^6/uL (4.36-5.78); RDW 13.3 % (11.8-14.1); RDW-SD 40.8 fL; WBC 14.39 10^3/uL (4.4-10.8)
[2025-01-06 15:01] LABS: ALT 29 U/L (16-63); AST 16 U/L (15-37); Albumin 3.7 g/dL (3.4-5.0); Alkaline Phosphatase 89 U/L (46-116); Anion Gap 13.6 mmol/L (3-11); BUN 10 mg/dL (7-18); Bilirubin, Total 0.3 mg/dL (0.2-1.0); CO2 21.4 mmol/L (21.0-32.0); Calcium 9.4 mg/dL (8.5-10.1); Chloride 99 mmol/L (98-107); Estimated GFR 81.47 (mL/min/1.73m2); Glucose 124 mg/dL (74-106); Magnesium 1.6 mg/dL (1.8-2.4); Potassium 4.2 mmol/L (3.5-5.1); Sodium 134 mmol/L (136-145); Total Protein 7.1 g/dL (6.4-8.2)
== END 2025-01-06 15:01 | disposition home or self-care (01) ==
LOC: LBN 15:00
PROVIDERS: PCP Legal Medicine; Visit Provider Nurse Practitioner Gerontology
DX: E87.8 Other disorders of electrolyte and fluid balance, not elsewhere classified (principal)
CPT/HCPCS: 80053; 83735; 85025

== ENCOUNTER 2025-01-19 18:14 | Outpatient (REF) | payer MEDICARE, MEDICAID, SELFPAY ==
[2025-01-19 19:48] LABS: Abs Immature Grans 0.06 10^3/uL (0.0-0.06); HCT 39.3 % (40.0-50.0); HGB 13.0 g/dL (13.5-17.5); Immature Grans % 0.5 %; MCH 28.0 pg (27.0-33.0); MCHC 33.1 % (32.0-36.0); MCV 85 fL (80-95); MPV 8.9 fL (8.0-11.0); Platelet Count 353 10^3/uL (130-400); RBC 4.64 10^6/uL (4.36-5.78); RDW 13.3 % (11.8-14.1); RDW-SD 41.2 fL; WBC 11.51 10^3/uL (4.4-10.8)
[2025-01-19 19:59] LABS: ALT 27 U/L (16-63); AST 14 U/L (15-37); Albumin 3.4 g/dL (3.4-5.0); Alkaline Phosphatase 81 U/L (46-116); Anion Gap 9.3 mmol/L (3-11); BUN 10 mg/dL (7-18); Bilirubin, Total 0.3 mg/dL (0.2-1.0); CO2 22.7 mmol/L (21.0-32.0); Calcium 9.0 mg/dL (8.5-10.1); Chloride 98 mmol/L (98-107); Estimated GFR 92.45 (mL/min/1.73m2); Glucose 123 mg/dL (74-106); Magnesium 1.6 mg/dL (1.8-2.4); Potassium 4.2 mmol/L (3.5-5.1); Sodium 130 mmol/L (136-145); Total Protein 6.4 g/dL (6.4-8.2)
== END 2025-01-19 18:15 | disposition home or self-care (01) ==
LOC: LBN 18:14
PROVIDERS: PCP Legal Medicine; Visit Provider Nurse Practitioner Gerontology
DX: E87.8 Other disorders of electrolyte and fluid balance, not elsewhere classified (principal)
CPT/HCPCS: 80053; 82785; 83735; 85025

== ENCOUNTER 2025-01-26 16:08 | Outpatient (REF) | payer MEDICARE, MEDICAID, SELFPAY ==
[2025-01-26 16:11] LABS: Abs Immature Grans 0.05 10^3/uL (0.0-0.06); HCT 40.3 % (40.0-50.0); HGB 13.5 g/dL (13.5-17.5); Immature Grans % 0.5 %; MCH 28.7 pg (27.0-33.0); MCHC 33.5 % (32.0-36.0); MCV 86 fL (80-95); MPV 8.7 fL (8.0-11.0); Platelet Count 411 10^3/uL (130-400); RBC 4.71 10^6/uL (4.36-5.78); RDW 13.2 % (11.8-14.1); RDW-SD 41.1 fL; WBC 9.73 10^3/uL (4.4-10.8)
[2025-01-26 16:30] LABS: Anion Gap 13.4 mmol/L (3-11); BUN 8 mg/dL (7-18); CO2 20.6 mmol/L (21.0-32.0); Calcium 9.3 mg/dL (8.5-10.1); Chloride 98 mmol/L (98-107); Estimated GFR 81.47 (mL/min/1.73m2); Glucose 138 mg/dL (74-106); Magnesium 1.6 mg/dL (1.8-2.4); Potassium 4.2 mmol/L (3.5-5.1); Sodium 132 mmol/L (136-145)
== END 2025-01-26 16:09 | disposition home or self-care (01) ==
LOC: LBN 16:08
PROVIDERS: PCP Legal Medicine; Visit Provider Nurse Practitioner Gerontology
DX: D63.1 Anemia in chronic kidney disease (principal)
CPT/HCPCS: 80048; 83735; 85025